=== PATIENT | female | born 1990 | race Caucasian/White ===

== ENCOUNTER 2018-05-29 03:04 | Inpatient (IN) | payer OTHER ==
[2018-05-29] VITALS (22 sets, daily range): BP systolic 97–130; BP diastolic 50–82; PULSE 64–97; RESP 12–20; Ht 152.4 cm; Wt 85.0 kg
[~2018-05-29] VITALS: Ht 152.4 cm; Wt 85.0 kg
[~2018-05-29 03:04] MED LIST: IBUP800T48 PO; NITR-58 PO; ONDA4TAB8 PO
[2018-05-29] MEDS ORDERED: ONDANSETRON 4 MG INJ IV STA (03:21)
[2018-05-29] MEDS ORDERED: SOD CHLORIDE 0.9% 500 ML IV STA (03:21)
[2018-05-29] MEDS ORDERED: morphine 4 MG/ML VIAL IV STA (03:21)
--- NOTE | 2018-05-29 03:24 | ERD ---
ER Documentation Chief Complaint Chief Complaint back pain rad to abd, no injury. no n/v/d/fever/urinary symptoms HPI 27-year-old female presents here to emergency department for complaints of epigastric pain right upper quadrant pain radiating to the right upper back area radiating to all over the abdomen that started at 12 midnight, describes the pain as throbbing pain, 8/10 scale, as was upon taking deep breaths and movement. Patient denies any nausea vomiting diarrhea fever. Patient has history of back surgeries from the past and had shunt placement from hydrocephalus. Patient denies any hematuria or dysuria. ROS All systems reviewed and are negative except as per history of present illness. Medications Home Meds Active Scripts Ondansetron Hcl* (Zofran*) 4 Mg Tablet, 4 MG PO Q6H for NAUSEA AND/OR VOMITING, #30 TAB Prov:JOSE NELSON PA-C 07/17/15 Ibuprofen* (Motrin*) 800 Mg Tab, 800 MG PO Q6, #30 TAB Prov:JOSE NELSON PA-C 07/17/15 Nitrofurantoin Monohyd Macrocr* (Macrobid*) 100 Mg Capsr, 100 MG PO BID for 7 Days, CAP Prov:JOSE NELSON PA-C 07/17/15 Allergies Allergies: Coded Allergies: Penicillins (Verified Allergy, Unknown, 07/17/15) PMhx/Soc History of Surgery: Yes (vp software shunt ) Anesthesia Reaction: No Hx Neurological Disorder: No Hx Respiratory Disorders: No Hx Cardiac Disorders: No Hx Psychiatric Problems: No Hx Miscellaneous Medical Probl: Yes (migraine , hydrocephalus ) Hx Alcohol Use: Yes Hx Substance Use: No Hx Tobacco Use: No FmHx Family History: No diabetes, No coronary disease, No other Physical Exam Vitals Vital Signs Date Temp Pulse Resp B/P (MAP) Pulse Ox O2 O2 Flow FiO2 Time Delivery Rate 05/29/18 98.1 82 20 139/73 100 03:05 (95) Physical Exam GENERAL: The patient is well developed and appropriate for usual state of health, in no apparent distress. CHEST: Clear to auscultation bilaterally. There are no rales, wheezes or rhonchi. HEART: Regular rate and rhythm. No murmurs, clicks, rubs or gallops. No S3 or S4. ABDOMEN: Soft, tenderness on all over abdomen and right flank area.. Good bowel sounds. No rebound or guarding. No gross peritonitis. No gross organomegaly or masses. No Grady sign or McBurney point tenderness. BACK: No midline or flank tenderness. EXTREMITIES: Equal pulses bilaterally. There is no peripheral clubbing, cyanosis or edema. No focal swelling or erythema. Full range of motion. Grossly neurovascularly intact. NEURO: Alert and oriented. Cranial nerves 2-12 intact. Motor strength in all 4 extremities with 5/5 strength. Sensation grossly intact. Normal speech and gait. SKIN: There is no apparent rash or petechia. The skin is warm and dry. HEMATOLOGIC AND LYMPHATIC: There is no evidence of excessive bruising or lymphedema. No gross cervical, axillary, or inguinal lymphadenopathy. Result Diagram: 05/29/18 0353 05/29/18 0353 Results 24 hrs Laboratory Tests Test 05/29/18 03:53 05/29/18 03:54 05/29/18 04:00 White Blood Count 12.9 10^3/ul Red Blood Count 5.25 10^6/ul Hemoglobin 14.8 g/dl Hematocrit 43.5 % Mean Corpuscular Volume 82.9 fl Mean Corpuscular Hemoglobin 28.2 pg Mean Corpuscular 34.0 g/dl Hemoglobin Concent Red Cell Distribution Width 12.6 % Platelet Count 367 10^3/UL Mean Platelet Volume 10.5 fl Immature Granulocytes % 0.400 % Neutrophils % 60.2 % Lymphocytes % 29.9 % Monocytes % 8.0 % Eosinophils % 1.0 % Basophils % 0.5 % Nucleated Red Blood Cells % 0.0 /100WBC Immature Granulocytes # 0.050 10^3/ul Neutrophils # 7.8 10^3/ul Lymphocytes # 3.9 10^3/ul Monocytes # 1.0 10^3/ul Eosinophils # 0.1 10^3/ul Basophils # 0.1 10^3/ul Nucleated Red Blood Cells # 0.0 10^3/ul Sodium Level 137 mmol/L Potassium Level 4.0 mmol/L Chloride Level 104 mmol/L Carbon Dioxide Level 25 mmol/L Anion Gap 8 Blood Urea Nitrogen 16 mg/dl Creatinine 0.89 mg/dl Est Glomerular Filtrat > 60 mL/min Rate mL/min Glucose Level 107 mg/dl Calcium Level 10.1 mg/dl Total Bilirubin 0.1 mg/dl Direct Bilirubin 0.00 mg/dl Indirect Bilirubin 0.1 mg/dl Aspartate Amino Transf (AST/SGOT) 38 IU/L Alanine 45 IU/L Aminotransferase (ALT/SGPT) Alkaline Phosphatase 86 IU/L Total Protein 8.5 g/dl Albumin 4.8 g/dl Globulin 3.70 g/dl Albumin/Globulin Ratio 1.29 Lipase 90 U/L Serum HCG, Qualitative NEGATIVE Urine Color YELLOW Urine Clarity SLIGHTLY CLOUDY Urine pH 6.0 Urine Specific [place] 1.017 Urine Ketones NEGATIVE mg/dL Urine Nitrite NEGATIVE mg/dL Urine Bilirubin NEGATIVE mg/dL Urine Urobilinogen NEGATIVE mg/dL Urine Leukocyte Esterase 3+ Mary/ul Urine Microscopic RBC 3 /HPF Urine Microscopic WBC 4 /HPF Urine Squamous Epithelial Cells FEW /HPF Urine Bacteria FEW /HPF Urine Hemoglobin NEGATIVE mg/dL Urine Glucose NEGATIVE mg/dL Urine Total Protein NEGATIVE mg/dl POC Beta HCG, Qualitative NEGATIVE Current Medications Medications Dose Sig/Tammy Start Time Status Last (Trade) Ordered Route PRN Stop Time Admin Dose Reason Admin Sodium 500 ml @ Q1H STAT 05/29/18 DC 05/29/18 Chloride 500 mls/hr IV 03:21 05/29/18 03:59 04:20 Morphine 4 mg ONCE STAT 05/29/18 DC 05/29/18 Sulfate IV 03:21 05/29/18 03:57 (morphine) 03:22 Ondansetron 4 mg ONCE STAT 05/29/18 DC 05/29/18 HCl (Zofran IV 03:21 05/29/18 03:57 Inj) 03:22 Lorazepam 1 mg ONCE ONCE 05/29/18 DC 05/29/18 (Ativan) IV 04:30 05/29/18 04:18 04:31 Sodium 100 ml @ ud STK-MED 05/29/18 DC 05/29/18 Chloride ONCE .ROUTE 04:33 05/29/18 04:51 04:34 Iohexol 150 ml STK-MED 05/29/18 DC 05/29/18 (Omnipaque ONCE .ROUTE 04:33 05/29/18 04:51 300mg/ ml) 04:34 Ketorolac 30 mg ONCE STAT 05/29/18 DC 05/29/18 Tromethamine IV 05:08 05/29/18 05:18 (Toradol) 05:09 Patient was given medication for pain here in emergency department, after treatment, patient verbalized feeling much better. Patient's pain is improved. Patient was given Zofran here in the emergency department. After treatment, patient was able to tolerate po fluids here in the emergency department without any vomiting. There is no signs and symptoms of dehydration. Normal saline IV bolus was given here in emergency department for rehydration, patient tolerated IV fluids. PROCEDURE: US Abdomen. CLINICAL INDICATION: Abdominal pain TECHNIQUE: Multiple real-time images were acquired of the patient's abdomen and retroperitoneum utilizing a high resolution transducer. COMPARISON: None FINDINGS: Examination is somewhat limited due to the patient's body habitus and overlying bowel gas. Liver is enlarged measuring 17.3 cm. Liver parenchymal echogenicity is normal without focal lesions. There are multiple gallstones seen within the gallbladder neck. Note however there is no gallbladder wall thickening or pericholecystic fluid. Common bile duct normal limits in size maximal transverse diameter 3.54 mm. No intrahepatic biliary ductal dilation. The right kidney is normal in size measuring 10.2 cm in maximal sagittal dimension. Normal right renal parenchymal echogenicity without calculus hydronephrosis or intra mass. Normal portal venous flow. The pancreas was not visualized due to technical reasons. IMPRESSION: 1. Multiple gallstones within the gallbladder neck but no gallbladder wall thickening. 2. No biliary ductal dilation. 3. No focal hepatic lesions. 4. Unremarkable right kidney. RPTAT:AAJJ Physician Chad Date Time Electronically viewed and signed by Physician Chad on 05/29/2018 04:29 BM/ CC: HILLARY HAIRSTON NP [id number] PROCEDURE: CT Abdomen and pelvis with contrast CLINICAL INDICATION: Abdominal pain TECHNIQUE: Spiral CT images through the abdomen and pelvis without adm inistration of oral and during administration of 100 cc of Omnipaque-300 contrast material. Multiplanar reconstructions. The total exam CTDI equals 17.92 mGy and the total exam DLP equals 1198.21 mGy-cm. One or more of the following dose reduction techniques were used: automated exposure control, adjustment of the mA and/or kV according to patient size, or use of iterative reconstruction technique. DICOM images are available. COMPARISON: US ABDOMEN 05/29/2018 FINDINGS: Lower thorax: Bibasilar dependent changes, right greater than left.. Liver: Mildly diminished hepatic density consistent with mild hepatic steatosis. Biliary: Distended gallbladder including gallbladder neck. There are small stones dependently and proximally within the gallbladder. No biliary ductal dilatation is seen. Pancreas: Unremarkable. No focal mass or inflammatory process. Spleen: The spleen is unremarkable in appearance Adrenal glands: Unremarkable in appearance. No focal nodule.. Genitourinary: Kidneys appear symmetric including minimal hydronephrosis without evidence of hydroureter. The bladder is moderately distended, without wall thickening. Gastrointestinal Tract: Evaluation is more limited without enteric contrast. There are several mildly dilated jejunal loops containing fluid and some debris, measuring just under 3 cm in the left upper quadrant. There are other distal small bowel loops in the lower abdomen including right lower quadrant which contains some stool/debris, perhaps on the basis of hypomotility. A defined transition is not seen. The appendix is unremarkable in appearance. Lymph nodes: No adenopathy is seen.. Peritoneal cavity: Small to moderate volume of free fluid in the lower abdomen and pelvis, surrounding the intraperitoneal portion of what appears to be a lumbo-peritoneal shunt or drain, that enters the left mid abdomen anteriorly, the extraperitoneal portion of which is connected to a device in the left flank soft tissues, with a single lead entering the spinal canal at L2-3 and extending superiorly to least the mid thoracic spine level, beyond the field of view. Distal portion of a separate ventriculoperitoneal shunt catheter is seen within the anterior right chest and abdominal wall soft tissues, entering to the right of midline at the level of the umbilicus, with its distal tip seen alongside the above-mentioned peritoneal catheter on coronal image 29. There is no loculated drainable collection to suggest abscess, nor free air. Reproductive Organs: Within physiologic normal limits.. Vascular structures: The aorta and mesenteric vessels are unremarkable.. Musculoskeletal: No acute or aggressive appearing osseous abnormality. Bilateral L5 pars defects are seen.. IMPRESSION: Distended gallbladder including gallbladder neck, with several small gallstones present, and which could raise the possibility of acute cholecystitis despite the absence of pericholecystic fat stranding. Further workup could include consideration for nuclear medicine HIDA scan. There are several mildly dilated jejunal loops measuring just under 3 cm, differential for which includes a mild localized ileus, although an early or partial small bowel obstruction is not excluded. Small to moderate volume of free fluid presumably related to the shunt catheters with 2 separate catheters partially included, as above. Minimal to mild bilateral hydronephrosis without evidence of hydroureter, and may in part relate to be moderately distended urinary bladder. Mild hepatic steatosis. RPTAT: HSAF Physician Hubert Date Time Electronically viewed and signed by Physician Hubert on 05/29/2018 05:12 RF/ Procedures/MDM Medical Decision Making: Symptoms consistent with possible acute cholecystitis, patient still has intractable pain after multiple medications given here in the emergency department, and patient also has urinary tract infection, I discussed this case with my attending physician, Dr. Barron agrees with plan of admission. Departure Diagnosis: Primary Impression: Cholecystitis Additional Impression: UTI (urinary tract infection) Urinary tract infection type: acute cystitis Hematuria presence: without hematuria Qualified Codes: N30.00 - Acute cystitis without hematuria Condition: HILLARY Phillips NP May 29, 2018 03:24
[2018-05-29] MEDS ORDERED: LORAZEPAM 2 MG INJ IV ONE (04:30)
[2018-05-29] MEDS ORDERED: IOHEXOL 300MG/ML 150 ML BTL ONE (04:33)
[2018-05-29] MEDS ORDERED: SOD CHLORIDE 0.9% 100 ML ONE (04:33)
[2018-05-29] MEDS ORDERED: KETOROLAC 30 MG INJ IV STA (05:08)
[2018-05-29] MEDS ORDERED: LEVOFLOXACIN 500MG/D5W (PMX) 100 ML IVPB ONE (06:30)
[2018-05-29] MEDS ORDERED: metroNIDAZOLE 500 MG/NS (PMX) 100 ML IVPB ONE (06:30)
[2018-05-29] MEDS ORDERED: ACETAMINOPHEN 325 MG TAB PO PRN (06:30)
[2018-05-29] MEDS ORDERED: ONDANSETRON 4 MG INJ IV PRN ×4 (06:30→16:00)
--- NOTE | 2018-05-29 06:30 | EN ---
Date/Time of Note Date/Time of Note DATE: 05/29/18 TIME: 06:19 ER Progress Note Consultation Note Subjective HPI: This patient was signed out to me at 6 AM after the diagnosis of cholecystitis was made by the PA and the patient was transferred to the main ER. Briefly, this is a 27-year-old female who presented with right upper quadrant abdominal pain. The patient's ultrasound revealed multiple gallstones concerning for biliary colic. The patient CT scan was read by the radiologist as concerning for possible cholecystitis. Family History: As indicated on the initial history and physical of this ER visit Objective VS: Vital signs reviewed Const: No apparent distress, well-developed, well-nourished Head: Normocephalic, Atraumatic Eyes: Normal Conjunctiva. ENT: Normal External Ears, Nose and Mouth. Neck: No meningismus. Resp: Symmetric chest wall pierre, no audible wheezes Cardio: Deferred Abd: Right upper quadrant abdominal pain Skin: No petechiae or rashes Back: Deferred Ext: No cyanosis, or edema Neur: Awake and alert, oriented 4. No facial droop. Normal strength and sensation. Psych: Normal mood and affect MDM The patient's presentation warrants further investigation. Previous medical records, if available, were reviewed. LABS The patient's laboratory testing was obtained and reviewed. No emergent treatment was required unless described below. CBC: Leukocytosis, concerning for possible infection. No E/o anemia or thrombocytopenia CMP: No E/o severe acidosis or alkalosis or renal failure or liver disease or diabetic ketoacidosis Lipase: No E/o pancreatitis PT/INR: No E/o significant coagulopathy Urine: Equivocal for infection or hematuria. IMAGING Imaging and Radiology interpretation reviewed. US Abd 1. Multiple gallstones within the gallbladder neck but no gallbladder wall thickening. 2. No biliary ductal dilation. 3. No focal hepatic lesions. 4. Unremarkable right kidney. Electronically viewed and signed by Physician Chad on 05/29/2018 04:29 CT Abd 1. Distended gallbladder including gallbladder neck, with several small gallstones present, and which could raise the possibility of acute cholecystitis despite the absence of pericholecystic fat stranding. Further workup could include consideration for nuclear medicine HIDA scan. 2. There are several mildly dilated jejunal loops measuring just under 3 cm, differential for which includes a mild localized ileus, although an early or partial small bowel obstruction is not excluded. 3. Small to moderate volume of free fluid presumably related to the shunt catheters with 2 separate catheters partially included, as above. 4. Minimal to mild bilateral hydronephrosis without evidence of hydroureter, and may in part relate to be moderately distended urinary bladder. 5. Mild hepatic steatosis. Electronically viewed and signed by Ino Will Physician on 05/29/2018 05:12 TREATMENT/DISPOSITION The patient presents with findings concerning for cholecystitis. The patient was given Toradol and morphine for pain control. She was given Zofran for nausea. She was given Levaquin and Flagyl for the possible infection. At this time, I feel that the patient requires admission for further evaluation and management. I admitted to Dr. Radford in accordance with the patient's insurance. The patient was accepted at 6:15AM on 05/29/2017 to med surg. The on-call general surgeon, Dr. Virk, was consulted by me from the emergency department. He will evaluate the patient in the hospital. Disclaimer: Inadvertent spelling and grammatical errors are likely due to EHR/dictation software use and do not reflect on the overall quality of patient care. Note that the electronic time recorded on this note does not necessarily reflect the actual time of the patient encounter. CECIL ADHIKARI MD May 29, 2018 06:29
[2018-05-29] MEDS ORDERED: DEXAMETHASONE 4 MG/ML 1 ML INJ ONE (07:00)
[2018-05-29] MEDS ORDERED: CLINDAMYCIN 900 MG/50 ML D5W IVPB IVPB ONE (07:00)
[2018-05-29] MEDS ORDERED: NEOSTIGMINE 3 MG/3 ML SYRINGE ONE (07:00)
[2018-05-29] MEDS ORDERED: GLYCOPYRROLATE 0.4 MG INJ ONE (07:00)
[2018-05-29] MEDS ORDERED: BUPIVACAINE 0.5%/EPI (SDV) 30 ML INJ ONE (12:13)
--- NOTE | 2018-05-29 12:19 | CONS ---
Date/Time of Note Date/Time of Note DATE: 05/29/18 TIME: 12:16 Assessment/Plan Assessment/Plan Assessment/Plan Acute cholecystitis. Laparoscopic cholecystectomy, possible open is recommended. I have discussed the procedure, outcomes, expectations, alternatives and risks in detail with the patient who has an excellent understanding of the nature of her situation and agrees to the proposed plan of therapy as outlined. Result Diagram: 05/29/18 0353 05/29/18 0353 Results 24hrs Laboratory Tests Test 05/29/18 03:53 05/29/18 03:54 05/29/18 04:00 White Blood Count 12.9 H Red Blood Count 5.25 Hemoglobin 14.8 Hematocrit 43.5 Mean Corpuscular Volume 82.9 Mean Corpuscular Hemoglobin 28.2 L Mean Corpuscular 34.0 Hemoglobin Concent Red Cell Distribution Width 12.6 Platelet Count 367 Mean Platelet Volume 10.5 H Immature Granulocytes % 0.400 Neutrophils % 60.2 Lymphocytes % 29.9 Monocytes % 8.0 Eosinophils % 1.0 Basophils % 0.5 Nucleated Red Blood Cells % 0.0 Immature Granulocytes # 0.050 H Neutrophils # 7.8 H Lymphocytes # 3.9 H Monocytes # 1.0 H Eosinophils # 0.1 Basophils # 0.1 Nucleated Red Blood Cells # 0.0 Sodium Level 137 Potassium Level 4.0 Chloride Level 104 Carbon Dioxide Level 25 Anion Gap 8 Blood Urea Nitrogen 16 Creatinine 0.89 Est Glomerular Filtrat > 60 Rate mL/min Glucose Level 107 Calcium Level 10.1 Total Bilirubin 0.1 L Direct Bilirubin 0.00 Indirect Bilirubin 0.1 Aspartate Amino 38 Transf (AST/SGOT) Alanine 45 Aminotransferase (ALT/SGPT) Alkaline Phosphatase 86 Total Protein 8.5 H Albumin 4.8 Globulin 3.70 H Albumin/Globulin Ratio 1.29 Lipase 90 Serum HCG, Qualitative NEGATIVE Urine Color YELLOW Urine Clarity SLIGHTLY CLOUDY A Urine pH 6.0 Urine Specific [place] 1.017 Urine Ketones NEGATIVE Urine Nitrite NEGATIVE Urine Bilirubin NEGATIVE Urine Urobilinogen NEGATIVE Urine Leukocyte Esterase 3+ H Urine Microscopic RBC 3 Urine Microscopic WBC 4 Urine Squamous Epithelial Cells FEW Urine Bacteria FEW A Urine Hemoglobin NEGATIVE Urine Glucose NEGATIVE Urine Total Protein NEGATIVE POC Beta HCG, Qualitative NEGATIVE Consultation Date/Type/Reason Admit Date/Time May 29, 2018 at 06:31 Date of Consultation: May 29, 2018 Type of Consult General surgery Reason for Consultation Acute cholecystitis Hx of Present Illness The patient is a 27-year-old female who is otherwise healthy, with the 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 She has no familial history of gallbladder disease. She presents to the emergency room with a one day history of severe midepigastric and right upper quadrant postprandial abdominal pain. She was found to have multiple gallstones without ductal dilatation. Her white blood cell count was elevated. She is admitted with acute cholecystitis and surgical consultation was requested in that regard. She has had no fevers, chills or jaundice. Constitutional: no complaints Eyes: no complaints ENT: no complaints Respiratory: no complaints Cardiovascular: no complaints Gastrointestinal: pain, nausea (Right upper quadrant) Genitourinary: no complaints Musculoskeletal: no complaints Skin: no complaints Neurologic: no complaints, other (History of hydrocephalus for which she has a BILLING DEPARTMENT SUPERVISOR shunt) Endocrine: no complaints Lymphatic: no complaints Past Medical History Medical History: no pertinent history, other (Hydrocephalus) Medications Current Medications Ondansetron HCl (Zofran Inj) 4 mg BRIDGE ORDER PRN IV NAUSEA AND/OR VOMITING; Start 05/29/18 at 06:30; Stop 05/30/18 at 06:29 Acetaminophen (Tylenol Tab) 650 mg ER BRIDGE PRN PO MILD PAIN(1-3)OR ELEVATED TEMP; Start 05/29/18 at 06:30; Stop 05/30/18 at 06:29 Allergies: Coded Allergies: Penicillins (Verified Allergy, Unknown, 07/17/15) Past Surgical History Past Surgical Hx: other (BILLING DEPARTMENT SUPERVISOR shunt) Family History Significant Family History: no pertinent family hx Social History Alcohol Use: none Smoking Status: Never smoker Exam/Review of Systems Vital Signs Vitals Vital Signs Date Temp Pulse Resp B/P (MAP) Pulse Ox O2 O2 Flow FiO2 Time Delivery Rate 05/29/18 97.8 64 17 109/60 98 Room Air 11:44 (76) Intake and Output 05/28/18 05/28/18 05/29/18 1414:59 22:59 06:59 IntakeIntake Total 600 ml BalanceBalance 600 ml Exam Constitutional: alert, oriented Psych: no complaints Head: normocephalic Eyes: nl conjunctiva ENMT: nl external ears & nose Neck: supple Respiratory: clear to auscultation Cardiovascular: regular rate and rhythm Gastrointestinal: tender (Right upper quadrant) Musculoskeletal: nl extremities to inspection Extremities: normal pulses Neurological: INFORMATICS ANALYST II-XII intact Skin: nl turgor Medications Medications Current Medications Ondansetron HCl (Zofran Inj) 4 mg BRIDGE ORDER PRN IV NAUSEA AND/OR VOMITING; Start 05/29/18 at 06:30; Stop 05/30/18 at 06:29 Acetaminophen (Tylenol Tab) 650 mg ER BRIDGE PRN PO MILD PAIN(1-3)OR ELEVATED TEMP; Start 05/29/18 at 06:30; Stop 05/30/18 at 06:29 AGUSTINA SHUKLA MD May 29, 2018 12:19
[2018-05-29] MEDS ORDERED: PROPOFOL 40 ML ONE (12:29)
[2018-05-29] MEDS ORDERED: MIDAZOLAM 1 MG/ML 2 ML INJ ONE (12:29)
[2018-05-29] MEDS ORDERED: FENTAnyl 50 MCG/ML VIAL ONE ×2 (12:29→12:56)
[2018-05-29] MEDS ORDERED: ROCURONIUM 50 MG INJ ONE (12:29)
[2018-05-29] MEDS ORDERED: ONDANSETRON 4 MG INJ ONE (12:29)
[2018-05-29] MEDS ORDERED: LIDOCAINE 2% (SDV) 5 ML INJ ONE (12:29)
[2018-05-29] MEDS ORDERED: FAMOTIDINE 20 MG INJ ONE (12:30)
--- NOTE | 2018-05-29 12:52 | PREAC ---
Date/Time of Note Date/Time of Note DATE: 05/29/18 TIME: 12:51 Anesthesia Eval and Record Evaluation Time Pre-Procedure Interview DATE: 05/29/18 TIME: 12:20 Age 27 Sex female NPO: 8 hrs Preoperative diagnosis cholecystitis Planned procedure laparoscopic cholecystectomy Past Medical History Past Medical History: Includes (hydrocephalus ) GI: Obesity Surgery & Anesthesia Issues No known issue Meds Anticoagulation: No Beta Carrie within 24 hr: No Reason Beta Carrie not given: Pt. not on B-Carrie Discontinued Scripts Ondansetron Hcl* (Zofran*) 4 Mg Tablet, 4 MG PO Q6H for NAUSEA AND/OR VOMITING, #30 TAB Prov:JOSE NELSON PA-C 07/17/15 Ibuprofen* (Motrin*) 800 Mg Tab, 800 MG PO Q6, #30 TAB Prov:JOSE NELSON PA-C 07/17/15 Nitrofurantoin Monohyd Macrocr* (Macrobid*) 100 Mg Capsr, 100 MG PO BID for 7 Days, CAP Prov:JOSE NELSON PA-C 07/17/15 Current Medications Ondansetron HCl (Zofran Inj) 4 mg BRIDGE ORDER PRN IV NAUSEA AND/OR VOMITING; Start 05/29/18 at 06:30; Stop 05/30/18 at 06:29 Acetaminophen (Tylenol Tab) 650 mg ER BRIDGE PRN PO MILD PAIN(1-3)OR ELEVATED TEMP; Start 05/29/18 at 06:30; Stop 05/30/18 at 06:29 Meds reviewed: Yes Allergies Coded Allergies: Penicillins (Verified Allergy, Unknown, 07/17/15) Allergies Reviewed: Yes Labs/Studies Labs Reviewed: Reviewed by anesthesiologist Result Diagram: 05/29/18 0353 05/29/18 0353 Laboratory Tests 05/29/18 03:53 test: Negative Pre-procedure Exam Last vitals Vital Signs Date Temp Pulse Resp B/P (MAP) Pulse Ox O2 O2 Flow FiO2 Time Delivery Rate 05/29/18 97.8 64 17 109/60 98 Room Air 11:44 (76) Airway: Adequate mouth opening, Adequate thyromental dist Mallampati: Mallampati II Teeth: Normal Lung: Normal Heart: Normal ASA Physical Status ASA physical status: 3 Emergency: E Planned Anesthetic General/MAC: ETT Pre-operative Attestations Prior to commencing anesthesia and surgery, the patient was re-evaluated, there was verification of: *The patient's identity *The results of appropriate recent lab work and preoperative vital signs *The above evaluation not changing prior to induction *Anesthetic plan, risk benefits, alternative and complications discussed with patient/family; questions answered; patient/family understands, accepts and wi shes to proceed. MARIAH LENZ May 29, 2018 12:52
[2018-05-29] MEDS ORDERED: morphine (1 MG/ML) 10ML SYRINGE IV PRN ×2 (13:00)
[2018-05-29] MEDS ORDERED: MEPERIDINE 25 MG INJ IV PRN (13:00)
[2018-05-29] MEDS ORDERED: HYDROmorphONE 1 MG/5 ML IV SYRINGE IV PRN ×2 (13:00)
[2018-05-29] MEDS ORDERED: LABETALOL HCL 20MG INJ IV PRN (13:00)
[2018-05-29] MEDS ORDERED: OXYCODONE/ACETAMINOPHEN (5/325) TAB PO PRN ×2 (13:00)
[2018-05-29] MEDS ORDERED: ALBUTEROL 0.083% (NEB) 2.5 MG/3 ML AMP HHN PRN (13:00)
[2018-05-29] MEDS ORDERED: DIPHENHYDRAMINE 50 MG INJ IV PRN (13:00)
[2018-05-29] MEDS ORDERED: FENTAnyl 50 MCG/ML VIAL IV PRN (13:00)
--- NOTE | 2018-05-29 13:21 | OPR ---
Date/Time of Note Date/Time of Note DATE: 05/29/18 TIME: 13:14 Operative Report Procedure Date: May 29, 2018 Preoperative Diagnosis Acute cholecystitis Postoperative Diagnosis Adhesions throughout the entire peritoneum Operation/Procedure Performed Limited laparoscopy Surgeon Agustina Shukla MD Inter Com Servicer None Anesthesia Type: general Anesthesiologist: Kishore Boucher M.D. Estimated Blood Loss: none Transfusion none Specimen None Grafts/Implants none Tubes/Drains None Complications none Pt Condition Post Procedure: stable Disposition: PACU Indications Cholecystitis Procedure Description The patient is a 27-year-old female who was admitted with right upper quadrant abdominal pain and gallstones. Her white blood cell count was elevated and her diagnosis was acute cholecystitis. Her only past medical history was a history of ventriculoperitoneal shunt for hydrocephalus. After satisfactory general endotracheal anesthesia was achieved the abdomen was prepped and draped in the usual fashion. The abdomen was insufflated with carbon dioxide through an umbilical Veress needle to 15 mmHg pressure. The Veress needle was removed and the umbilical incision was extended to 5 mm through which a 5 mm trocar was enrrique stefano. A 5 mm 0 degree lens was placed. Laparoscopy showed only small intestine. The entry site of the ventriculoperitoneal shunt was intact. The shunt was visible. The trocar was withdrawn slightly expecting that the colon which was not visualized would be able to be encompassed by the pneumoperitoneum. But this did not happen. Under direct visualization a 5 mm epigastric trocar was placed. The camera was placed into the epigastric port. The umbilical port was visualized and was intraperitoneal. No liver or colon was able to be visualized the only free area of the peritoneum was below the colon where the umbilical trocar was safely placed. There were too many adhesions in an abdomen essentially plastered with adhesions. It was thought dangerous to proceed and the procedure was aborted. The trochars were removed. The skin punctures were infiltrated with 20 cc of 0.25% Marcaine with epinephrine and closed with opal. Sponge and needle counts were reported as correct x2. AGUSTINA SHUKLA MD May 29, 2018 13:21
[2018-05-29] MEDS: FENTAnyl 50 MCG/ML VIAL IV PRN ×2 (13:29→13:34)
[2018-05-29] MEDS ORDERED: morphine SULFATE/PF (2 MG/2 ML) SYG IV PRN (13:30)
[2018-05-29] MEDS: SOD CHLORIDE 0.9% 1,000 ML IV SCH (15:58)
[2018-05-29] MEDS: LEVOFLOXACIN 500MG/D5W (PMX) 100 ML IVPB SCH (16:03)
--- NOTE | 2018-05-29 17:04 | QN ---
Documentation Comment seen and examined ENEDINA CUTLER MD May 29, 2018 17:04
[2018-05-29] MEDS: metroNIDAZOLE 500 MG/NS (PMX) 100 ML IVPB SCH ×2 (17:30→23:13)
--- NOTE | 2018-05-29 18:47 | HP ---
DATE OF ADMISSION: 05/29/2018 REASON FOR ADMISSION: Abdominal pain. HISTORY OF PRESENTING ILLNESS: This is a 27-year-old female with a past medical history of hydroceph alus as a child with multiple back surgeries, abdominal surgeries, multiple shunt placements, present ed to the emergency department complaining of epigastric right upper quadrant pain going to the upper back that started midnight. The patient said that she has had 4 episodes of this kind of pain start ing since last year. She always thought that the pain was related to her back surgeries and had been usually taking Vicodin. Last midnight when she had a hot chocolate and after she had it, she woke u p, had a severe right upper quadrant pain and that made her come to the hospital. She was also havin g some chest pain, burning and some nausea. The patient denied any hematuria, any dysuria. On arriv al to ED, vital signs showed blood pressure 139/73. The patient was afebrile. White count was 12.9. BMP showed total bilirubin 0.1, AST, ALT within normal limits. Alkaline phosphatase 86. Lipase wa s 90. UA showed 3+ leukocyte esterase. The patient had a gallbladder ultrasound that showed multipl e gallstones with the gallbladder neck, but no gallbladder wall thickening. She also had a CT of the abdomen and pelvis that showed distended gallbladder including gallbladder neck with several gallsto sandy present which could raise the possibility of acute cholecystitis. Despite of absence of fa t stranding, there are several mildly dilated jejunal loops which include mild localized ileus, small to moderate amount of free fluid, shunt catheters, minimal to mild bilateral hydronephrosis without evidence of ureter. It may be related to the moderately distended urinary bladder and mild hepatic s teatosis. The patient was admitted for further management. Actually, the patient was seen by Dr. Peace oneil and was taken to OR; however, had adhesions for the entire peritoneum and had a limited laparosc opy performed. PAST MEDICAL HISTORY: History of hydrocephalus with multiple shunt placements and back surgeries. ALLERGIES: 1. PENICILLIN. 2. TAPE. SOCIAL HISTORY: Denies any history of smoking, alcohol or drug use. FAMILY HISTORY: Noncontributory. MEDICATIONS: Taking at home is Vicodin. PHYSICAL EXAMINATION: VITAL SIGNS: Currently blood pressure is 112/60, afebrile, heart rate is 70. GENERAL: The patient is awake, alert, oriented, appears to be in mild to moderate distress, obese. NECK: Supple. No JVD. HEART: Regular rate and rhythm. LUNGS: Decreased breath sounds bilaterally. ABDOMEN: Tenderness present in the right upper quadrant. Multiple surgical scars. Positive bowel s ounds. EXTREMITIES: No clubbing, cyanosis or edema BACK: The patient has scars on the back. LABORATORY DATA: BMP within normal limit. White count of 12.9, hemoglobin 14.8, platelet count of 3 67. ASSESSMENT AND PLAN: This is a 27-year-old female presenting with: 1. Recurrent right upper quadrant pain for the past 1 year with [address] of the abdomen and p minal with distended gallbladder with some small gallstones. However, the patient was taken to OR by Dr. Vikr and had adhesions throughout the entire peritoneum with limited laparoscopy. 2. Distended bladder. 3. Obesity. 4. History of hydrocephalus with multiple back and shunt surgeries. PLAN: At this period of time, the patient is admitted to med/surg. The patient will be on IV antibi otics, pain control, IV fluids. We will follow with surgery recommendations whether the patient will need. Rest of the treatment will depend on the patient's hospitalization course. Dictated By: ENEDINA NEFF/JUNIOR Conf#: [id number] DID#: [id number]
[2018-05-29] MEDS: morphine SULFATE/PF (2 MG/2 ML) SYG IV PRN ×2 (18:48→23:13)
[2018-05-29] MEDS: HYDROCODONE/APAP (5/325) TAB PO PRN (21:46)
[2018-05-30 01:44] VITALS: BP 101/59; PULSE 65; RESP 16
[2018-05-30] MEDS: metroNIDAZOLE 500 MG/NS (PMX) 100 ML IVPB SCH ×3 (05:27→21:25)
[2018-05-30] MEDS: morphine SULFATE/PF (2 MG/2 ML) SYG IV PRN ×3 (05:37→21:34)
[2018-05-30] MEDS: SOD CHLORIDE 0.9% 1,000 ML IV SCH ×2 (05:45→12:55)
[2018-05-30 07:56] VITALS: BP 102/56; PULSE 73; RESP 18
--- NOTE | 2018-05-30 08:38 | QN ---
Documentation Comment Postoperative day #1 Afebrile throughout The abdominal examination is benign. WBC 15,000 HIDA scan negative Plan: Continue IV antibiotics. If patient is stable can be discharged. If patient requires surgery, it will need to be done open and would recommend higher level of care at a tertiary center, because of previous abdominal surgeries and ventriculoperitoneal shunt AGUSTINA SHUKLA MD May 30, 2018 08:38
--- NOTE | 2018-05-30 10:48 | PAC ---
Date/Time of Note Date/Time of Note DATE: 05/30/18 TIME: 10:48 Post-Anesthesia Notes Post-Anesthesia Note Last documented vital signs Vital Signs Date Temp Pulse Resp B/P (MAP) Pulse Ox O2 O2 Flow FiO2 Time Delivery Rate 05/30/18 98.2 73 18 102/56 96 Room Air 07:56 (71) 05/29/18 3.0 14:48 Activity: WNL Respiratory function: WNL Cardiovascular function: WNL Mental status: Baseline Pain reasonably controlled: Yes Hydration appropriate: Yes Nausea/Vomiting absent: Yes Kishore Boucher M.D. May 30, 2018 10:48
[2018-05-30 15:21] VITALS: BP 107/59; PULSE 79; RESP 18
[2018-05-30] MEDS: LEVOFLOXACIN 500MG/D5W (PMX) 100 ML IVPB SCH (15:57)
[2018-05-30] MEDS: HYDROCODONE/APAP (5/325) TAB PO PRN (15:57)
--- NOTE | 2018-05-30 16:37 | PN ---
Date/Time of Note Date/Time of Note DATE: 05/30/18 TIME: 16:34 Assessment/Plan VTE Prophylaxis Risk score (from Ns)>0 risk: 2 SCD applied (from Nsg): Yes Pharmacological prophylaxis: NA/contraindicated Pharm contraindication: low risk/ambulating Lines/Catheters IV [facility]ter Type (from [facility]): Peripheral IV Assessment/Plan Hospital Course his is a 27-year-old female presenting with: 1. Recurrent right upper quadrant pain for the past 1 year with [address] of the abdomen and pelvis with distended gallbladder with some small gallstones. However, the patient was taken to OR by Dr. 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 Distended bladder. 3. Obesity. 4. History of hydrocephalus with multiple back and shunt surgeries. 5 Leukocytosis 15 Plan - HIDA neg - per surgery, cw iv abx, if need surgery will need open cholecystectomy> recommend [facility] - Pt wish to go to [place]> will try to transfer - full liquid diet - cw levaquin/flagyl - iv fluids - pain control Result Diagram: 05/30/18 0601 05/30/18 0601 Results 24hrs Laboratory Tests Test 05/30/18 06:01 White Blood Count 15.1 H Red Blood Count 4.69 Hemoglobin 13.3 Hematocrit 39.0 Mean Corpuscular Volume 83.2 Mean Corpuscular Hemoglobin 28.4 L Mean Corpuscular Hemoglobin Concent 34.1 Red Cell Distribution Width 12.7 Platelet Count 333 Mean Platelet Volume 10.9 H Immature Granulocytes % 0.300 Neutrophils % 85.9 H Lymphocytes % 9.1 L Monocytes % 4.6 Eosinophils % 0.0 Basophils % 0.1 Nucleated Red Blood Cells % 0.0 Immature Granulocytes # 0.040 H Neutrophils # 13.0 H Lymphocytes # 1.4 Monocytes # 0.7 Eosinophils # 0.0 Basophils # 0.0 Nucleated Red Blood Cells # 0.0 Sodium Level 141 Potassium Level 4.5 Chloride Level 102 Carbon Dioxide Level 27 Anion Gap 12 Blood Urea Nitrogen 11 Creatinine 0.68 Est Glomerular Filtrat Rate mL/min > 60 Glucose Level 127 Calcium Level 9.2 Phosphorus Level 4.4 Magnesium Level 1.9 Subjective 24 Hr Interval Summary Free Text/Dictation Feel s slight better HIDA scan neg Exam/Review of Systems Vital Signs Vitals Vital Signs Date Temp Pulse Resp B/P (MAP) Pulse Ox O2 O2 Flow FiO2 Time Delivery Rate 05/30/18 98.2 79 18 107/59 97 Room Air 15:21 (75) 05/29/18 3.0 14:48 Intake and Output 05/29/18 05/29/18 05/30/18 1515:00 23:00 07:00 IntakeIntake Total 900 ml 440 ml 900 ml OutputOutput Total 5 ml BalanceBalance 895 ml 440 ml 900 ml Exam GENERAL: The patient is awake, alert, oriented, appears to be in mild to moderate distress, obese. NECK: Supple. No JVD. HEART: Regular rate and rhythm. LUNGS: Decreased breath sounds bilaterally. ABDOMEN: Tenderness present in the right upper quadrant. Multiple surgical sca rs. Positive bowel sounds. EXTREMITIES: No clubbing, cyanosis or edema BACK: The patient has scars on the back Medications Medications Current Medications Ondansetron HCl (Zofran Inj) 4 mg Q6H PRN IV NAUSEA; Start 05/29/18 at 13:30 Morphine Sulfate (morphine SULFATE (PF)) 2 mg Q4H PRN IV SEVERE PAIN LEVEL 7-10 Last administered on 05/30/18at 13:20; Admin Dose 2 MG; Start 05/29/18 at 16:00 Ondansetron HCl (Zofran Inj) 4 mg Q4H PRN IV NAUSEA AND/OR VOMITING; Start 05/29/18 at 16:00 Levofloxacin/ Dextrose 100 ml @ 100 mls/hr Q24H IVPB Last administered on 05/30/18at 15:57; Admin Dose 100 MLS/HR; Start 05/29/18 at 16:00 Sodium Chloride 1,000 ml @ 70 mls/hr [id number] IV Last administered on 05/30/18at 12:55; Admin Dose 70 MLS/HR; Start 05/29/18 at 16:00 Metronidazole 100 ml @ 100 mls/hr Q8 IVPB Last administered on 05/30/18at 14:17; Admin Dose 100 MLS/HR; Start 05/29/18 at 17:30 Acetaminophen/ Hydrocodone Bitart ([place] (5/325)) 1 tab Q6H PRN PO MODERATE PAIN LEVEL 4-6 Last administered on 05/30/18at 15:57; Admin Dose 1 TAB; Start 05/29/18 at 21:30 ENEDINA CUTLER MD May 30, 2018 16:37
[2018-05-30 20:00] VITALS: BP 112/55; PULSE 84; RESP 16
[2018-05-31] MEDS: HYDROCODONE/APAP (5/325) TAB PO PRN ×3 (00:14→23:27)
[2018-05-31 02:53] VITALS: BP 110/65; PULSE 82; RESP 20
[2018-05-31] MEDS: morphine SULFATE/PF (2 MG/2 ML) SYG IV PRN ×2 (04:59→17:44)
[2018-05-31] MEDS: metroNIDAZOLE 500 MG/NS (PMX) 100 ML IVPB SCH ×3 (05:03→23:23)
[2018-05-31 08:27] VITALS: BP 114/73; PULSE 80; RESP 15
--- NOTE | 2018-05-31 09:32 | QN ---
Documentation Comment Postoperative day #2 Symptomatically improved Afebrile throughout Leukocytosis improved Abdominal examination is benign As there are no further surgical recommendations, will sign off and see again prn your request AGUSTINA SHUKLA MD May 31, 2018 09:32
--- NOTE | 2018-05-31 11:05 | PN ---
Date/Time of Note Date/Time of Note DATE: 05/31/18 TIME: 11:05 Assessment/Plan VTE Prophylaxis Risk score (from Ns)>0 risk: 4 SCD applied (from Ns): Yes Pharmacological prophylaxis: NA/contraindicated Pharm contraindication: surgical contra Lines/Catheters IV Catheter Type (from Nrs): Peripheral IV Assessment/Plan Hospital Course 1. Recurrent right upper quadrant pain for the past 1 year with [address] of the abdomen and pelvis with distended gallbladder with some small gallstones. However, the patient was taken to OR by Dr. 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 Distended bladder. 3. Obesity. 4. History of hydrocephalus with multiple back and shunt surgeries. 5 Leukocytosis decreased 6. Ileus with constipation 3 days Assessment/Plan -per case management started to do transfer to [facility] now - HIDA neg - per surgery, cw iv abx, if need surgery will need open cholecystectomy> recommend [facility] - Pt wish to go to [place]> will try to transfer - c/wfull liquid diet - cw levaquin/flagyl - c/w iv fluids - pain control -ambulate -suppositoria -diet consult Result Diagram: 05/31/18 0624 05/31/18 0624 Results 24hrs Laboratory Tests Test 05/31/18 06:24 White Blood Count 11.8 #H Red Blood Count 4.25 Hemoglobin 12.0 Hematocrit 35.6 L Mean Corpuscular Volume 83.8 Mean Corpuscular Hemoglobin 28.2 L Mean Corpuscular Hemoglobin Concent 33.7 Red Cell Distribution Width 13.3 Platelet Count 303 Mean Platelet Volume 10.7 H Immature Granulocytes % 0.400 Neutrophils % 63.5 Lymphocytes % 26.5 Monocytes % 9.0 Eosinophils % 0.3 Basophils % 0.3 Nucleated Red Blood Cells % 0.0 Immature Granulocytes # 0.050 H Neutrophils # 7.5 Lymphocytes # 3.1 H Monocytes # 1.1 H Eosinophils # 0.0 Basophils # 0.0 Nucleated Red Blood Cells # 0.0 Sodium Level 142 Potassium Level 3.9 Chloride Level 106 Carbon Dioxide Level 26 Anion Gap 10 Blood Urea Nitrogen 10 Creatinine 0.76 Est Glomerular Filtrat Rate mL/min > 60 Glucose Level 93 Calcium Level 8.5 Total Bilirubin 0.2 Direct Bilirubin 0.00 Indirect Bilirubin 0.2 Aspartate Amino Transf (AST/SGOT) 21 Alanine Aminotransferase (ALT/SGPT) 29 Alkaline Phosphatase 53 Total Protein 7.0 Albumin 3.6 Globulin 3.40 H Albumin/Globulin Ratio 1.05 Subjective 24 Hr Interval Summary Constitutional: no complaints, improved Exam/Review of Systems Vital Signs Vitals Vital Signs Date Temp Pulse Resp B/P (MAP) Pulse Ox O2 O2 Flow FiO2 Time Delivery Rate 05/31/18 98.6 80 15 114/73 97 08:27 (87) 05/30/18 Room Air 15:21 05/29/18 3.0 14:48 Intake and Output 05/30/18 05/30/18 05/31/18 1515:00 23:00 07:00 IntakeIntake Total 880 ml 650 ml 450 ml BalanceBalance 880 ml 650 ml 450 ml Exam Constitutional: alert, oriented Respiratory: clear to auscultation Cardiovascular: regular rate and rhythm Gastrointestinal: soft, surgical scars Medications Medications Current Medications Ondansetron HCl (Zofran Inj) 4 mg Q6H PRN IV NAUSEA; Start 05/29/18 at 13:30 Morphine Sulfate (morphine SULFATE (PF)) 2 mg Q4H PRN IV SEVERE PAIN LEVEL 7-10 Last administered on 05/31/18at 04:59; Admin Dose 2 MG; Start 05/29/18 at 16:00 Ondansetron HCl (Zofran Inj) 4 mg Q4H PRN IV NAUSEA AND/OR VOMITING; Start 05/29/18 at 16:00 Levofloxacin/ Dextrose 100 ml @ 100 mls/hr Q24H IVPB Last administered on 05/30/18at 15:57; Admin Dose 100 MLS/HR; Start 05/29/18 at 16:00 Sodium Chloride 1,000 ml @ 70 mls/hr [id number] IV Last administered on 05/30/18at 12:55; Admin Dose 70 MLS/HR; Start 05/29/18 at 16:00 Metronidazole 100 ml @ 100 mls/hr Q8 IVPB Last administered on 05/31/18at 05:03; Admin Dose 100 MLS/HR; Start 05/29/18 at 17:30 Acetaminophen/ Hydrocodone Bitart ([place] (5/325)) 1 tab Q6H PRN PO MODERATE PAIN LEVEL 4-6 Last administered on 05/31/18at 08:44; Admin Dose 1 TAB; Start 05/29/18 at 21:30 BESSIE GAMINO May 31, 2018 11:05
[2018-05-31] MEDS ORDERED: BISACODYL 10 MG SUPP PR PRN (11:30)
[2018-05-31] MEDS ORDERED: LACTULOSE 30ML CUP PO PRN (11:30)
[2018-05-31] MEDS: SOD CHLORIDE 0.9% 1,000 ML IV SCH (11:32)
--- NOTE | 2018-05-31 15:21 | PDOCDIS ---
Discharge Instructions DIAGNOSIS Discharge Diagnosis cholecysttitis CONDITION [id number] Patient Condition: [id number] Fair HOME CARE INSTRUCTIONS: [id number] Diet Instructions: [id number] Low Fat /Cholesterol [id number] Special Diet: [id number] clear liquid ACTIVITY: [id number] Activity Restrictions: [id number] Slowly Increase Activity Rest between Activity Avoid heavy lifting FOLLOW UP/APPOINTMENTS Follow-up Plan f/u PCP in 1-2 weeks f/u [facility] for open choelcystectomy ENEDINA CUTLER MD May 31, 2018 15:21
[2018-05-31] MEDS ORDERED: METR500T PO (15:22)
[2018-05-31] MEDS ORDERED: CIPR500T4 PO (15:22)
[2018-05-31 15:57] VITALS: BP 97/57; PULSE 76; RESP 14
[2018-05-31] MEDS: LEVOFLOXACIN 500MG/D5W (PMX) 100 ML IVPB SCH (17:42)
[2018-05-31 19:58] VITALS: BP 131/75; PULSE 86; RESP 16
--- NOTE | 2018-06-01 01:33 | DS ---
DATE OF ADMISSION: 05/29/2018 DATE OF DISCHARGE: 05/31/2018 HISTORY OF PRESENTING ILLNESS AND HOSPITAL COURSE: This is a 27-year-old female with a past medical history of hydrocephalus as a child, multiple back surgeries, abdominal surgery, stent placement, pre sented to the emergency department complaining of epigastric pain going to the back, started midnight . This is her fourth episode. On admission, vital signs showed blood pressure 139/73. The patient is afebrile. White count is 12.9. BMP showed total bilirubin 0.1, AST, ALT within normal limit. Al kaline phosphatase was 86. Lipase was 90. UA showed 3+ leukocyte esterase. The patient had a gallb ladder ultrasound that showed multiple gallstones in the gallbladder neck with no gallbladder wall th ickening. Also had a CT of the abdomen and pelvis that showed distended gallbladder with gallbladder next with several gallstones with several mildly dilated jejunal loops, small to moderate free fluid presumably due to shunt catheters, minimal to mild bilateral hydronephrosis without evidence of hydr oureter, it could be moderately related to distended gallbladder. The patient also was seen by katie ry consultation with Dr. Virk and was started on broad spectrum IV antibiotics. However postoperat ively, the patient was found to have adhesions throughout the entire peritoneum, had a limited laparo scopy performed. The patient's condition was improving everyday. Initially, it was thought that the patient should be referred to a tertiary level of care as the patient would lead open cholecystectom y, previous abdominal surgery shunt. However, the patient was feeling much better. HIDA scan was done that was negative. Abdominal exam was benign. White count came down to 11.8 and per rowena y recommendations, the patient will be discharged to follow up with [facility] as an outpatient. An attemp t was made to transfer the patient in house; however, the insurance was not contacted with [facility]. FINAL DISCHARGE DIAGNOSES: 1. Cholelithiasis. HIDA negative for cholecystitis, status post limited laparoscopy with adhesions throughout the peritoneum. 2. Distended bladder. 3. Obesity. 4. History of hydrocephalus, multiple back and shunt surgeries. 5. Leukocytosis, improved. DISCHARGE CONDITION: Stable. DISCHARGE DIET: Low-fat diet. DISCHARGE MEDICATIONS: 1. Cipro 500 mg p.o. b.i.d. for 7 days. 2. Flagyl 500 mg p.o. q.8 for 7 days. DISCHARGE INSTRUCTIONS: The patient was instructed to follow up with [facility] where she normally goes or her hydrocephalus surgery. Follow up there in 1 week. If the pain gets worse as the patient will n eed open cholecystectomy. Dictated By: ENEDINA NEFF/JUNIOR Conf#: [id number] DID#: [id number]
[2018-06-01 01:39] VITALS: BP 109/58; PULSE 80; RESP 16
[2018-06-01] MEDS: SOD CHLORIDE 0.9% 1,000 ML IV SCH (04:55)
[2018-06-01] MEDS: metroNIDAZOLE 500 MG/NS (PMX) 100 ML IVPB SCH (06:23)
[2018-06-01] MEDS: HYDROCODONE/APAP (5/325) TAB PO PRN (06:24)
[2018-06-01 07:26] VITALS: BP 117/68; PULSE 69; RESP 18
--- NOTE | 2018-06-01 09:59 | DS ---
Date/Time of Note Date/Time of Note DATE: 06/01/18 TIME: 09:59 Discharge Summary Admission/Discharge Info Admit Date/Time May 29, 2018 at 06:31 Discharge Date/Time Discharge Diagnosis cholecysttitis Patient Condition: Stable Consults Dr Virk, surgery Hospital Course 1. Recurrent right upper quadrant pain for the past 1 year with [address] of the abdomen and pelvis with distended gallbladder with some small gallstones. However, the patient was taken to OR by Dr. 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 Distended bladder. 3. Obesity. 4. History of hydrocephalus with multiple back and shunt surgeries. 5 Leukocytosis decreased 6. Ileus with constipation 3 days Home Meds Active Scripts Metronidazole* (Flagyl*) 500 Mg Tablet, 500 MG PO Q8 for 7 Days, TAB Prov:ENEDINA CUTLER MD 05/31/18 Ciprofloxacin Hcl* (Ciprofloxacin Hcl*) 500 Mg Tablet, 500 MG PO BID for 7 Days, #14 TAB Prov:ENEDINA CUTLER MD 05/31/18 Discontinued Scripts Ondansetron Hcl* (Zofran*) 4 Mg Tablet, 4 MG PO Q6H for NAUSEA AND/OR VOMITING, #30 TAB Prov:JOSE NELSON PA-C 07/17/15 Ibuprofen* (Motrin*) 800 Mg Tab, 800 MG PO Q6, #30 TAB Prov:JOSE NELSON PA-C 07/17/15 Nitrofurantoin Monohyd Macrocr* (Macrobid*) 100 Mg Capsr, 100 MG PO BID for 7 Days, CAP Prov:JOSE NELSON PA-C 07/17/15 Follow-up Plan f/u PCP in 1-2 weeks f/u [facility] for open choelcystectomy Primary Care Provider Bryce Arzate MD Time spent on discharge: < 30 minutes Pending Labs Laboratory Tests Test 06/01/18 06:02 White Blood Count 10.9 10^3/ul (4.8-10.8) Red Blood Count 4.46 10^6/ul (4.20-5.40) Hemoglobin 12.7 g/dl (12.0-16.0) Hematocrit 37.6 % (37.0-47.0) Mean Corpuscular Volume 84.3 fl (82.0-101.0) Mean Corpuscular Hemoglobin 28.5 pg (29.0-33.0) Mean Corpuscular Hemoglobin Concent 33.8 g/dl (32.0-37.0) Red Cell Distribution Width 13.0 % (11.5-14.5) Platelet Count 336 10^3/UL (140-415) Mean Platelet Volume 10.3 fl (7.4-10.4) Immature Granulocytes % 0.200 % (0.001-0.429) Neutrophils % 68.1 % (39.0-77.0) Lymphocytes % 23.0 % (15.0-51.0) Monocytes % 7.9 % (0.0-11.0) Eosinophils % 0.4 % (0.0-7.0) Basophils % 0.4 % (0.0-2.0) Nucleated Red Blood Cells % 0.0 /100WBC (0.0-0.0) Immature Granulocytes # 0.020 10^3/ul (0.0-0.031) Neutrophils # 7.5 10^3/ul (1.6-7.5) Lymphocytes # 2.5 10^3/ul (0.8-2.9) Monocytes # 0.9 10^3/ul (0.3-0.9) Eosinophils # 0.0 10^3/ul (0.0-0.5) Basophils # 0.0 10^3/ul (0.0-0.1) Nucleated Red Blood Cells # 0.0 10^3/ul (0.0-0.0) Sodium Level 141 mmol/L (135-144) Potassium Level 3.7 mmol/L (3.5-5.1) Chloride Level 104 mmol/L (97-110) Carbon Dioxide Level 26 mmol/L (21-31) Anion Gap 11 (5-13) Blood Urea Nitrogen 9 mg/dl (7-20) Creatinine 0.80 mg/dl (0.44-1.00) Est Glomerular Filtrat Rate mL/min > 60 mL/min (>60) Glucose Level 95 mg/dl (70-220) Calcium Level 8.8 mg/dl (8.4-10.2) BESSIE GAMINO Jun 01, 2018 09:59
--- NOTE | 2018-06-01 10:01 | PN ---
Date/Time of Note Date/Time of Note DATE: 06/01/18 TIME: 10:00 Assessment/Plan VTE Prophylaxis Risk score (from Ns)>0 risk: 2 SCD applied (from Ns): No SCD contraindicated: low risk/ambulating Pharmacological prophylaxis: NA/contraindicated Pharm contraindication: surgical contra Lines/Catheters [facility] IV Assessment/Plan Hospital Course 1. Recurrent right upper quadrant pain for the past 1 year with [address] of the abdomen and pelvis with distended gallbladder with some small gallstones. However, the patient was taken to OR by Dr. Virk and had adhesions throughout the entire peritoneum with limited laparoscopy.due to multiple old abdominal surgeries and INSPECTOR PROCESS shunt 2. Distended bladder. 3. Obesity. 4. History of hydrocephalus with multiple back and shunt surgeries. 5 Leukocytosis decreased 6. Ileus with constipation 3 days Assessment/Plan -pt did not tolerated doiet -still constipated -ambuled - HIDA neg - per surgery, cw iv abx, if need surgery will need open cholecystectomy> re commend [facility] - Pt wish to go to [place]> will try to transfer - c/wfull liquid diet - cw levaquin/flagyl -stop iv fluids - pain control -ambulate -suppositoria -diet consult Result Diagram: 06/01/18 0602 06/01/18 0602 Results 24hrs Laboratory Tests Test 06/01/18 06:02 White Blood Count 10.9 H Red Blood Count 4.46 Hemoglobin 12.7 Hematocrit 37.6 Mean Corpuscular Volume 84.3 Mean Corpuscular Hemoglobin 28.5 L Mean Corpuscular Hemoglobin Concent 33.8 Red Cell Distribution Width 13.0 Platelet Count 336 Mean Platelet Volume 10.3 Immature Granulocytes % 0.200 Neutrophils % 68.1 Lymphocytes % 23.0 Monocytes % 7.9 Eosinophils % 0.4 Basophils % 0.4 Nucleated Red Blood Cells % 0.0 Immature Granulocytes # 0.020 Neutrophils # 7.5 Lymphocytes # 2.5 Monocytes # 0.9 Eosinophils # 0.0 Basophils # 0.0 Nucleated Red Blood Cells # 0.0 Sodium Level 141 Potassium Level 3.7 Chloride Level 104 Carbon Dioxide Level 26 Anion Gap 11 Blood Urea Nitrogen 9 Creatinine 0.80 Est Glomerular Filtrat Rate mL/min > 60 Glucose Level 95 Calcium Level 8.8 Subjective 24 Hr Interval Summary Gastrointestinal: decreased appetite, nausea Exam/Review of Systems Vital Signs Vitals Vital Signs Date Temp Pulse Resp B/P (MAP) Pulse Ox O2 O2 Flow FiO2 Time Delivery Rate 06/01/18 98.0 69 18 117/68 100 Room Air 07:26 (84) 05/29/18 3.0 14:48 Intake and Output 05/31/18 05/31/18 06/01/18 1515:00 23:00 07:00 IntakeIntake Total 2230 ml 1000 ml 1190 ml BalanceBalance 2230 ml 1000 ml 1190 ml Exam Constitutional: alert, oriented Respiratory: clear to auscultation Cardiovascular: regular rate and rhythm Gastrointestinal: soft, surgical scars Medications Medications Current Medications Morphine Sulfate (morphine SULFATE (PF)) 2 mg Q4H PRN IV SEVERE PAIN LEVEL 7-10 Last administered on 05/31/18 17:44; Admin Dose 2 MG; Start 05/29/18 at 16:00 Ondansetron HCl (Zofran Inj) 4 mg Q4H PRN IV NAUSEA AND/OR VOMITING; Start 05/29/18 at 16:00 Levofloxacin/ Dextrose 100 ml @ 100 mls/hr Q24H IVPB Last administered on 05/31/18 17:42; Admin Dose 100 MLS/HR; Start 05/29/18 at 16:00 Sodium Chloride 1,000 ml @ 70 mls/hr [id number] IV Last administered on 06/01/18 04:55; Admin Dose 70 MLS/HR; Start 05/29/18 at 16:00 Metronidazole 100 ml @ 100 mls/hr Q8 IVPB Last administered on 06/01/18 06:23; Admin Dose 100 MLS/HR; Start 05/29/18 at 17:30 Acetaminophen/ Hydrocodone Bitart ([place] (5/325)) 1 tab Q6H PRN PO MODERATE PAIN LEVEL 4-6 Last administered on 06/01/18 06:24; Admin Dose 1 TAB; Start 05/29/18 at 21:30 Bisacodyl (Dulcolax Supp) 10 mg DAILY PRN ND CONSTIPATION; Start 05/31/18 at 11:30 Lactulose (Enulose) 10 gm DAILY PRN PO CONSTIPATION; Start 05/31/18 at 11:30 BESSIE GAMINO Jun 01, 2018 10:01
== END 2018-06-01 14:20 | disposition home or self-care (01) | DRG 421 ==
LOC: FTE 03:04 → 2NE 06:31
PROVIDERS: ADMIT Internal Medicine; ATTEND Internal Medicine
PROC: 0WJG4ZZ Inspection of Peritoneal Cavity, Percutaneous Endoscopic Approach (ICD-10-PCS; principal; 2018-05-29 12:30)
DX: K80.20 Calculus of gallbladder without cholecystitis without obstruction (principal); K56.7 Ileus, unspecified; K66.0 Peritoneal adhesions (postprocedural) (postinfection); N32.89 Other specified disorders of bladder; E66.9 Obesity, unspecified; K59.00 Constipation, unspecified; Z68.36 Body mass index [BMI] 36.0-36.9, adult; Z98.2 Presence of cerebrospinal fluid drainage device; Z88.0 Allergy status to penicillin
CPT/HCPCS: 36415; 74177; 76705; 78226; 80048; 80053; 81001; 81025; 83690; 83735; 84100; 84703; 85025; 96361; 96374; 96375; A9537; J1100; J1170; J1885; J1956; J2060; J2175; J2250; J2270; J2274; J2405; J2710; J3010; J7030; J7040; Q9967

== ENCOUNTER 2018-09-30 23:33 | Inpatient (IN) | payer OTHER ==
[~2018-09-30] VITALS: Ht 160 cm; Wt 81.8 kg
[~2018-09-30 23:33] MED LIST changes: +CIPR500T4 PO; -IBUP800T48 PO; +METR500T PO; -NITR-58 PO; -ONDA4TAB8 PO
[2018-10-01] VITALS (12 sets, daily range): BP systolic 118–149; BP diastolic 71–83; PULSE 59–92; RESP 18–24; Ht 160 cm; Wt 81.8 kg
[2018-10-01] MEDS ORDERED: morphine 4 MG/ML VIAL IV STA ×2 (00:18→16:33)
[2018-10-01] MEDS ORDERED: SOD CHLORIDE 0.9% 1,000 ML IV STA (00:18)
[2018-10-01] MEDS ORDERED: ONDANSETRON 4 MG INJ IV STA ×2 (00:18→07:19)
[2018-10-01] MEDS ORDERED: HYDROmorphONE 0.5 MG/0.5 ML SYG IV STA ×3 (01:36→05:24)
[2018-10-01] MEDS ORDERED: SOD CHLORIDE 0.9% 1,000 ML IV ONE (02:00)
[2018-10-01] MEDS ORDERED: metroNIDAZOLE 500 MG/NS (PMX) 100 ML IVPB ONE (02:30)
[2018-10-01] MEDS ORDERED: LEVOFLOXACIN 500MG/D5W (PMX) 100 ML IVPB ONE (02:30)
[2018-10-01] MEDS ORDERED: SOD CHLORIDE 0.9% 100 ML ONE (03:41)
[2018-10-01] MEDS ORDERED: IOHEXOL 300MG/ML 150 ML BTL ONE (03:41)
--- NOTE | 2018-10-01 03:56 | ERD ---
ER Documentation Chief Complaint Chief Complaint mid AP 03/06, N/V X 3.5 hrs. Hx gallstones. HPI 28-year-old female presents for abdominal pain x3-1/2 hours. She has a past medical history of hydrocephalus with a AMBULANCE OFFICER shunt, multiple back and abdominal surgeries, history of gallstones. She states that she has 10 out of 10 pain, lo cated in the epigastric area. She has nausea and vomiting. She denies fevers or diarrhea. She was here for a similar abdominal pain in May 2018, at that time was found to have multiple gallstones on imaging. Patient was taken to the OR at the time however it was noted that she had a lot of abdominal adhesions, therefore was felt that it was unsafe for surgery. Patient was given antibiotic s and pain control. She was told to follow-up at [facility] given that she gets most of her medical care for her hydrocephalus and AMBULANCE OFFICER shunt at [facility]. Per patient she did follow-up at [facility] subsequent to discharge from the hospital here on May 2018, she was admitted for about a week and was given antibiotics and pain medication. Again surgery was not attempted due to adhesions. Patient states that since then she has been okay, she always has a baseline mild abdominal pain intermittently, however states that the past few hours the pain has been more severe. Otherwise no other modifying factors noted, no treatments tried at home. ROS All systems reviewed and are negative except as per history of present illness. Medications Home Meds Active Scripts Metronidazole* (Flagyl*) 500 Mg Tablet, 500 MG PO Q8 for 7 Days, TAB Prov:ENEDINA CUTLER MD 05/31/18 Ciprofloxacin Hcl* (Ciprofloxacin Hcl*) 500 Mg Tablet, 500 MG PO BID for 7 Days, #14 TAB Prov:ENEDINA CUTLER MD 05/31/18 Allergies Allergies: Coded Allergies: Penicillins (Verified Allergy, Unknown, 07/17/15) Uncoded Allergies: TAPE (Allergy, Severe, 06/14/18) rashes PMhx/Soc History of Surgery: Yes (hydrocephalus, shunt placement, multiple back and abdominal surgeries) Anesthesia Reaction: No Hx Neurological Disorder: No Hx Respiratory Disorders: No Hx Cardiac Disorders: No Hx Psychiatric Problems: No Hx Miscellaneous Medical Probl: No Hx Alcohol Use: No Hx Substance Use: No Hx Tobacco Use: No FmHx Family History: No coronary disease Physical Exam Vitals Vital Signs Date Temp Pulse Resp B/P (MAP) Pulse Ox O2 O2 Flow FiO2 Time Delivery Rate 10/01/18 98.9 72 22 165/91 100 Nasal 2.0 02:50 (115) Cannula 09/30/18 99.6 90 20 147/101 100 23:39 (116) Physical Exam Const: Moderate acute distress noted Resp: Clear to auscultation bilaterally Cardio: Regular rate and rhythm, no murmurs Abd: Soft, non distended. Normal bowel sounds, severe tenderness palpation in the epigastric area, due to pain the patient would not allow deep palpation. Skin: No petechiae or rashes Back: No midline or flank tenderness Ext: No cyanosis, or edema Neur: Awake and alert Psych: Normal Mood and Affect Result Diagram: 10/01/183310/01/1833 Results 24 hrs Laboratory Tests Test 10/01/18 00:34 10/01/18 04:02 White Blood Count 13.5 10^3/ul Red Blood Count 5.22 10^6/ul Hemoglobin 14.7 g/dl Hematocrit 43.5 % Mean Corpuscular Volume 83.3 fl Mean Corpuscular Hemoglobin 28.2 pg Mean Corpuscular Hemoglobin Concent 33.8 g/dl Red Cell Distribution Width 13.2 % Platelet Count 324 10^3/UL Mean Platelet Volume 11.1 fl Immature Granulocytes % 0.100 % Neutrophils % 66.1 % Lymphocytes % 25.7 % Monocytes % 6.9 % Eosinophils % 0.5 % Basophils % 0.7 % Nucleated Red Blood Cells % 0.0 /100WBC Immature Granulocytes # 0.020 10^3/ul Neutrophils # 8.9 10^3/ul Lymphocytes # 3.5 10^3/ul Monocytes # 0.9 10^3/ul Eosinophils # 0.1 10^3/ul Basophils # 0.1 10^3/ul Nucleated Red Blood Cells # 0.0 10^3/ul Sodium Level 143 mmol/L Potassium Level 3.2 mmol/L Chloride Level 105 mmol/L Carbon Dioxide Level 22 mmol/L Anion Gap 16 Blood Urea Nitrogen 9 mg/dl Creatinine 0.84 mg/dl Est Glomerular Filtrat Rate mL/min > 60 mL/min Glucose Level 126 mg/dl Calcium Level 10.3 mg/dl Total Bilirubin 0.3 mg/dl Direct Bilirubin 0.00 mg/dl Indirect Bilirubin 0.3 mg/dl Aspartate Amino Transf (AST/SGOT) 25 IU/L Alanine Aminotransferase (ALT/SGPT) 22 IU/L Alkaline Phosphatase 90 IU/L Total Protein 8.7 g/dl Albumin 5.0 g/dl Globulin 3.70 g/dl Albumin/Globulin Ratio 1.35 Lipase 103 U/L POC Beta HCG, Qualitative NEGATIVE Current Medications Medications Dose Sig/Tammy Start Time Status Last (Trade) Ordered Route PRN Stop Time Admin Dose Reason Admin Sodium 1,000 ml @ Q1H STAT 10/01/18 DC 10/01/18 Chloride 1,000 mls/hr IV 00:18 10/01/18 01:18 01:17 Morphine 4 mg ONCE STAT 10/01/18 DC 10/01/18 Sulfate IV 00:18 10/01/18 01:15 (morphine) 00:21 Ondansetron 4 mg ONCE STAT 10/01/18 DC 10/01/18 HCl (Zofran IV 00:18 10/01/18 01:15 Inj) 00:21 0.5 mg ONCE STAT 10/01/18 DC 10/01/18 Hydromorphone IV 01:36 10/01/18 01:42 HCl 01:37 (Dilaudid) Sodium 1,000 ml @ Q1H ONCE 10/01/18 DC 10/01/18 Chloride 1,000 mls/hr IV 02:00 10/01/18 01:43 02:59 100 ml @ ONCE ONCE 10/01/18 DC 10/01/18 Levofloxacin/ 100 mls/hr IVPB 02:30 10/01/18 04:02 Dextrose 03:29 100 ml @ ONCE ONCE 10/01/18 DC 10/01/18 Metronidazole 100 mls/hr IVPB 02:30 10/01/18 03:09 03:29 0.5 mg ONCE STAT 10/01/18 DC 10/01/18 Hydromorphone IV 02:43 10/01/18 02:47 HCl 02:44 (Dilaudid) IV Flush 10 ml STK-MED 10/01/18 DC (NS 10 ml) ONCE .ROUTE 03:41 10/01/18 03:42 Sodium 100 ml @ ud STK-MED 10/01/18 DC Chloride ONCE .ROUTE 03:41 10/01/18 03:42 Iohexol 150 ml STK-MED 10/01/18 DC (Omnipaque ONCE .ROUTE 03:41 10/01/18 300mg/ ml) 03:42 Procedures/MDM Medical Decision Making: Differential diagnosis includes but not limited to acute gastritis, acute gastroenteritis, appendicitis, cholecystitis, pancreatitis, nephrolithiasis Patient in moderate distress on examination ED course: Patient was given morphine, zofran and dilaudid 0.5mg x2, IV fluids, blood c ultures drawn and levaquin and flagyl IV started Labs: CBC showed no severe anemia, elevated WBC 13.5 CMP showed low K 3.2, there was normal kidney and liver function Lipase was normal Urine results pending UA results pending Patient has not given a urine sample Imaging: Gallbladder ultrasound shows multiple gallstones with evidence of cholecystitis CT abdomen and pelvis with IV contrast ordered and pending Given that patient has been given multiple doses a IV pain medication with resolution of the pain, Dr. Polo Roldan was contacted for patient admission for pain control and medical management. Patient's care signed over to [facility]. Pending follow up with Dr. Roldan and CT abdomen as well as pending UA. Disclaimer: Inadvertent spelling and grammatical errors are likely due to EHR/dictation software use and do not reflect on the overall quality of patient care. Also, please note that the electronic time recorded on this note does not necessarily reflect the actual time of the patient encounter. ALESHIA OROURKE DO October 01, 2018 03:41
[2018-10-01] MEDS ORDERED: HYDROmorphONE 1 MG/ML SYG IV STA (07:19)
[2018-10-01] MEDS ORDERED: ONDANSETRON 4 MG INJ IV PRN ×4 (07:30→22:00)
[2018-10-01] MEDS ORDERED: morphine 2 MG INJ IV PRN (12:12)
[2018-10-01] MEDS ORDERED: SOD CHLORIDE 0.9% 1,000 ML IV SCH (13:17)
--- NOTE | 2018-10-01 13:22 | QN ---
Documentation Comment seen and examined ENEDINA CUTLER MD October 01, 2018 13:22
[2018-10-01] MEDS ORDERED: DOCUSATE SODIUM 100 MG CAP PO PRN (13:30)
[2018-10-01] MEDS ORDERED: METOCLOPRAMIDE 10 MG INJ IV PRN ×2 (13:30→22:00)
[2018-10-01] MEDS: metroNIDAZOLE 500 MG/NS (PMX) 100 ML IVPB SCH ×2 (18:17→23:50)
[2018-10-01] MEDS: CIPROFLOXACIN 400MG/D5W 200 ML IVPB SCH (19:51)
--- NOTE | 2018-10-01 19:55 | PREAC ---
Date/Time of Note Date/Time of Note DATE: 10/01/18 TIME: 19:51 Anesthesia Eval and Record Evaluation Time Pre-Procedure Interview DATE: 10/01/18 TIME: 19:51 Age 28 Sex female NPO: 8 hrs Preoperative diagnosis Cholelithiasis Planned procedure Lap vs open Cholecystectomy Past Medical History Past Medical History: Includes Neuro: Other (shunts) GI: Morbid obesity (multiple abdominal surgeries) Surgery & Anesthesia Issues No known issue Meds Anticoagulation: No Beta Carrie within 24 hr: No Reason Beta Carrie not given: Pt. not on B-Carrie Active Scripts Metronidazole* (Flagyl*) 500 Mg Tablet, 500 MG PO Q8 for 7 Days, TAB Prov:ENEDINA CUTLER MD 05/31/18 Ciprofloxacin Hcl* (Ciprofloxacin Hcl*) 500 Mg Tablet, 500 MG PO BID for 7 Days, #14 TAB Prov:ENEDINA CUTLER MD 05/31/18 Current Medications Ondansetron HCl (Zofran Inj) 4 mg BRIDGE ORDER PRN IV NAUSEA/VOMITING; Start 10/01/18 at 07:30; Stop 10/02/18 at 07:29 Morphine Sulfate (morphine) 2 mg Q3H PRN IV PAIN LEVEL 6-10 Last administered on 10/01/18at 12:18; Admin Dose 2 MG; Start 10/01/18 at 12:12 Sodium Chloride 1,000 ml @ 70 mls/hr [id number] IV Last administered on 10/01/18at 13:17; Admin Dose 70 MLS/HR; Start 10/01/18 at 13:17 Ondansetron HCl (Zofran Inj) 4 mg Q6H PRN IV NAUSEA/VOMITING; Start 10/01/18 at 13:30 Metoclopramide HCl (Reglan) 10 mg Q6H PRN IV NAUSEA/VOMITING; Start 10/01/18 at 13:30 Docusate Sodium (Colace) 100 mg Q12H PRN PO .CONSTIPATION; Start 10/01/18 at 13:30 Pantoprazole (Protonix Iv) 40 mg DAILY@06 IV ; Start 10/02/18 at 06:00 Ciprofloxacin/ Dextrose 200 ml @ 200 mls/hr Q12 IVPB ; Start 10/01/18 at 16:00 Metronidazole 100 ml @ 100 mls/hr Q8 IVPB Last administered on 10/01/18at 18:17; Admin Dose 100 MLS/HR; Start 10/01/18 at 14:00 Meds reviewed: Yes Allergies Coded Allergies: Penicillins (Verified Allergy, Unknown, 07/17/15) Uncoded Allergies: TAPE (Allergy, Severe, 06/14/18) rashes Allergies Reviewed: Yes Labs/Studies Labs Reviewed: Reviewed by anesthesiologist Result Diagram: 10/01/18 0034 10/01/18 0034 Laboratory Tests 10/01/18 00:34 test: Negative Studies: ECG Pre-procedure Exam Last vitals Vital Signs Date Temp Pulse Resp B/P (MAP) Pulse Ox O2 O2 Flow FiO2 Time Delivery Rate 10/01/18 98.4 59 18 118/81 100 Nasal 2.0 14:45 (93) Cannula Airway: Adequate mouth opening, Adequate thyromental dist Mallampati: Mallampati II Teeth: Normal Lung: Normal Heart: Normal ASA Physical Status ASA physical status: 3 Emergency: E Planned Anesthetic General/MAC: ETT Planned Pain Management Parenteral pain med, Local by surgeon Pre-operative Attestations Prior to commencing anesthesia and surgery, the patient was re-evaluated, there was verification of: *The patient's identity *The results of appropriate recent lab work and preoperative vital signs *The above evaluation not changing prior to induction *Anesthetic plan, risk benefits, alternative and complications discussed with patient/family; questions answered; patient/family understands, accepts and wishes to proceed. YU GRIJALVA MD October 01, 2018 19:55
[2018-10-01] MEDS ORDERED: SEVOFLURANE 15 MIN ONE (20:00)
--- NOTE | 2018-10-01 20:00 | CONS ---
Assessment/Plan Assessment/Plan Hospital Course (Demo Recall) HIDA scan was performed that showed no visualization of the gallbladder, with evidence of acute cholecystitis. Liver function tests were normal Problems: (1) Cholecystitis (2) Gallstone Status: Chronic Qualifiers: Qualified Codes: K80.12 - Calculus of gallbladder with acute and chronic cholecystitis without obstruction Assessment/Plan (Daily) Acute cholecystitis. Given the severe pain I made the decision to take the patient to the operating room. I discussed with the patient risk and benefits. I made it clear to the patient that due to the previous attempts of laparoscopic surgery if there is a good possibility of converting surgery to open procedure. We discussed risks and benefits were discussed possible side effects, possible complications including but not limited to bleeding, infection, injury to other organs and bile duct, anesthesia complication, patient understood risk and andre efits and wished to proceed. Consultation Date/Type/Reason Admit Date/Time October 01, 2018 at 06:29 Date of Consultation: October 01, 2018 Type of Consult Surgical Reason for Consultation Symptomatic cholelithiasis, abdominal pain, possible cholecystitis. Date/Time of Note DATE: 10/01/18 TIME: 19:53 Hx of Present Illness 28-year-old female presents for abdominal pain x3-1/2 hours. She has a past medical history of hydrocephalus with a BIN PACKER shunt, multiple back and abdominal surgeries, history of gallstones. She states that she has 10 out of 10 pain, located in the epigastric area. She has nausea and vomiting. She denies fevers or diarrhea. She was here for a similar abdominal pain in May 2018, at that time was found to have multiple gallstones on imaging. Patient was taken to the OR at the time however it was noted that she had a lot of abdominal adhesions, therefore was felt that it was unsafe for surgery. Patient was given antibiotics and pain control. She was told to follow-up at [facility] given that she gets most of her medical care for her hydrocephalus and BIN PACKER shunt at [facility]. Per patient she did follow-up at [facility] subsequent to discharge from the hospital here on May 2018, she was admitted for about a week and was given antibiotics and pain medication. Again surgery was not attempted due to adhesions. Patient states that since then she has been okay, she always has a baseline mild abdominal pain intermittently, however states that the past few hours the pain has been more severe. Pain is mostly in the epigastrium goes to her back. Constitutional: no complaints, improved Eyes: no complaints ENT: no complaints Respiratory: no complaints Cardiovascular: no complaints Gastrointestinal: pain, decreased appetite, nausea Genitourinary: no complaints Musculoskeletal: no complaints Skin: no complaints Neurologic: headache, other (Hydrocephalus in the history) Endocrine: no complaints Lymphatic: no complaints Psychological: no complaints, nl mood/affect Immunologic: no complaints Past Medical History Medical History: gallstones, other (History of the hydrocephalus, history of the multiple BIN PACKER shunts, history of back surgery.) Home Meds Active Scripts Metronidazole* (Flagyl*) 500 Mg Tablet, 500 MG PO Q8 for 7 Days, TAB Prov:ENEDINA CUTLER MD 05/31/18 Ciprofloxacin Hcl* (Ciprofloxacin Hcl*) 500 Mg Tablet, 500 MG PO BID for 7 Days, #14 TAB Prov:ENEDINA CUTLER MD 05/31/18 Medications Current Medications Ondansetron HCl (Zofran Inj) 4 mg BRIDGE ORDER PRN IV NAUSEA/VOMITING; Start 10/01/18 at 07:30; Stop 10/02/18 at 07:29 Morphine Sulfate (morphine) 2 mg Q3H PRN IV PAIN LEVEL 6-10 Last administered on 10/01/18at 12:18; Admin Dose 2 MG; Start 10/01/18 at 12:12 Sodium Chloride 1,000 ml @ 70 mls/hr [id number] IV Last administered on 10/01/18at 13:17; Admin Dose 70 MLS/HR; Start 10/01/18 at 13:17 Ondansetron HCl (Zofran Inj) 4 mg Q6H PRN IV NAUSEA/VOMITING; Start 10/01/18 at 13:30 Metoclopramide HCl (Reglan) 10 mg Q6H PRN IV NAUSEA/VOMITING; Start 10/01/18 at 13:30 Docusate Sodium (Colace) 100 mg Q12H PRN PO .CONSTIPATION; Start 10/01/18 at 13:30 Pantoprazole (Protonix Iv) 40 mg DAILY@06 IV ; Start 10/02/18 at 06:00 Ciprofloxacin/ Dextrose 200 ml @ 200 mls/hr Q12 IVPB ; Start 10/01/18 at 16:00 Metronidazole 100 ml @ 100 mls/hr Q8 IVPB Last administered on 10/01/18at 18:17; Admin Dose 100 MLS/HR; Start 10/01/18 at 14:00 Allergies: Coded Allergies: Penicillins (Verified Allergy, Unknown, 07/17/15) Uncoded Allergies: TAPE (Allergy, Severe, 06/14/18) rashes Past Surgical History Patient is a history of multiple BIN PACKER shunt placed due to hydrocephalus as well as back and spine surgery Past Surgical Hx: other Family History Significant Family History: no pertinent family hx Social History Alcohol Use: none Smoking Status: Never smoker Drug Use: none Exam/Review of Systems Exam Vitals Vital Signs Date Temp Pulse Resp B/P (MAP) Pulse Ox O2 O2 Flow FiO2 Time Delivery Rate 10/01/18 98.4 59 18 118/81 100 Nasal 2.0 14:45 (93) Cannula Constitutional: alert, oriented, well developed, distress Psych: no complaints, nl mood/affect Head: normocephalic, atraumatic Eyes: nl conjunctiva, EOMI, nl lids, nl sclera, PERRL ENMT: nl external ears & nose, nl lips & teeth, nl nasal mucosa & septum Neck: supple, non-tender Respiratory: clear to auscultation, normal air movement Cardiovascular: regular rate and rhythm, nl pulses Gastrointestinal: other (Abdomen is obese soft in the left side and very tender in the right subcostal area with positive Grady sign. Multiple well-healed scars from the previous surgery. No evidence of herniation.) Musculoskeletal: nl extremities to inspection, nl gait and stance Extremities: normal pulses Neurological: SWITCH ENGINEER II-XII intact, nl mental status, nl speech, nl strength Skin: nl turgor; No rash or lesions Lymph: nl lymph nodes Results Result Diagram: 10/01/18 0034 10/01/18 0034 Results 24hrs Laboratory Tests Test 10/01/18 00:34 10/01/18 04:02 10/01/18 05:00 White Blood Count 13.5 #H Red Blood Count 5.22 Hemoglobin 14.7 Hematocrit 43.5 Mean Corpuscular Volume 83.3 Mean Corpuscular Hemoglobin 28.2 L Mean Corpuscular 33.8 Hemoglobin Concent Red Cell Distribution Width 13.2 Platelet Count 324 Mean Platelet Volume 11.1 H Immature Granulocytes % 0.100 Neutrophils % 66.1 Lymphocytes % 25.7 Monocytes % 6.9 Eosinophils % 0.5 Basophils % 0.7 Nucleated Red Blood Cells % 0.0 Immature Granulocytes # 0.020 Neutrophils # 8.9 H Lymphocytes # 3.5 H Monocytes # 0.9 Eosinophils # 0.1 Basophils # 0.1 Nucleated Red Blood Cells # 0.0 Sodium Level 143 Potassium Level 3.2 L Chloride Level 105 Carbon Dioxide Level 22 Anion Gap 16 H Blood Urea Nitrogen 9 Creatinine 0.84 Est Glomerular Filtrat > 60 Rate mL/min Glucose Level 126 Calcium Level 10.3 H Total Bilirubin 0.3 Direct Bilirubin 0.00 Indirect Bilirubin 0.3 Aspartate Amino 25 Transf (AST/SGOT) Alanine 22 Aminotransferase (ALT/SGPT) Alkaline Phosphatase 90 Total Protein 8.7 H Albumin 5.0 H Globulin 3.70 H Albumin/Globulin Ratio 1.35 Lipase 103 POC Beta HCG, Qualitative NEGATIVE Urine Color YELLOW Urine Clarity SLIGHTLY CLOUDY A Urine pH 7.0 Urine Specific [place] 1.017 Urine Ketones 1+ H Urine Nitrite NEGATIVE Urine Bilirubin NEGATIVE Urine Urobilinogen NEGATIVE Urine Leukocyte Esterase 1+ H Urine Microscopic RBC 3 Urine Microscopic WBC 3 Urine Squamous Epithelial Cells MODERATE Urine Mucus FEW A Urine Hemoglobin 1+ H Urine Glucose NEGATIVE Urine Total Protein NEGATIVE Medications Medication Current Medications Ondansetron HCl (Zofran Inj) 4 mg BRIDGE ORDER PRN IV NAUSEA/VOMITING; Start 10/01/18 at 07:30; Stop 10/02/18 at 07:29 Morphine Sulfate (morphine) 2 mg Q3H PRN IV PAIN LEVEL 6-10 Last administered on 10/01/18at 12:18; Admin Dose 2 MG; Start 10/01/18 at 12:12 Sodium Chloride 1,000 ml @ 70 mls/hr [id number] IV Last administered on 10/01/18at 13:17; Admin Dose 70 MLS/HR; Start 10/01/18 at 13:17 Ondansetron HCl (Zofran Inj) 4 mg Q6H PRN IV NAUSEA/VOMITING; Start 10/01/18 at 13:30 Metoclopramide HCl (Reglan) 10 mg Q6H PRN IV NAUSEA/VOMITING; Start 10/01/18 at 13:30 Docusate Sodium (Colace) 100 mg Q12H PRN PO .CONSTIPATION; Start 10/01/18 at 13:30 Pantoprazole (Protonix Iv) 40 mg DAILY@06 IV ; Start 10/02/18 at 06:00 Ciprofloxacin/ Dextrose 200 ml @ 200 mls/hr Q12 IVPB ; Start 10/01/18 at 16:00 Metronidazole 100 ml @ 100 mls/hr Q8 IVPB Last administered on 10/01/18at 18:17; Admin Dose 100 MLS/HR; Start 10/01/18 at 14:00 VERONIQUE ROMERO MD October 01, 2018 20:00
[2018-10-01] MEDS ORDERED: MIDAZOLAM 1 MG/ML 2 ML INJ ONE (20:01)
[2018-10-01] MEDS ORDERED: BUPIVACAINE 0.5%/EPI (SDV) 30 ML INJ ONE (20:28)
[2018-10-01] MEDS ORDERED: LIDOCAINE 1% (MPF) 30 ML INJ ONE (20:28)
[2018-10-01] MEDS ORDERED: ROPIVACAINE 0.5 % 30 ML VIAL ONE (21:27)
[2018-10-01] MEDS ORDERED: DIPHENHYDRAMINE 25 MG CAP PO PRN (21:30)
[2018-10-01] MEDS ORDERED: HYDROCODONE/APAP (5/325) TAB PO PRN (21:30)
[2018-10-01] MEDS ORDERED: ACETAMINOPHEN 325 MG TAB PO PRN (21:30)
[2018-10-01] MEDS ORDERED: DIPHENHYDRAMINE 50 MG INJ IV PRN ×2 (21:30→22:00)
--- NOTE | 2018-10-01 21:36 | OPR ---
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 Presented today with severe pain, HIDA scan showed obstruction of the cystic duct. Ultrasound reveals no biliary dilatation and the patient had normal liver function tests. We discussed risks and benefits were discussed possible side effects, possible complications including but not limited to bleeding, infection, injury to other organs, bile ducts, anesthesia complication, patient understood risk and benefits and wished to proceed. Procedure Description The risks, benefits and alternatives of the procedure were discussed with the patient and informed consent was obtained. We discussed with the patient and the family possibility of the bleeding, infection, injury to other organs, bile ducts injury, retained stones and necessity of the ERCP. OPERATIVE PROCEDURE: The patient was brought to the operating room and placed supine. IV antibiotics were given. Venodynes were placed to both lower extremities. General endotracheal anesthesia was achieved. The abdomen was prepped and draped in a sterile fashion. 0.25% Marcaine with epinephrine was used for local anesthesia. a Veress needle was placed in the left subcostal position. The abdomen was insufflated with CO2. Intraperitoneal position was confirmed using the saline drop test. Carbon dioxide pneumoperitoneum was achieved with a good filling pressure to 15 mmHg. The 30- degree 5 mm video laparoscope was inserted through a 5-mm trocar placed in the left subcostal position. There was no evidence of injury after Veress needle and trocar insertion. Additional 5 trocars was placed in the left abdomen. Dense adhesions were encountered and there was no visualization of the gallbladder. Sharp and blunt dissection I was able to dissect the omentum off the anterior abdominal wall. After lengthy dissection I was able to create enough space to visualize the gallbladder. The bladder was found to be distended gangrenous. 2 additional 5 mm trochars were placed in the right abdomen. a 12-mm subxiphoid trocar, The gallbladder was grasped at the fundus and elevated cephalad. The area at Calot's triangle was dissected using blunt and electrocautery dissection, and critical view was obtained. Clip placed across the cystic duct and artery. The cystic duct was clipped additionally and then divided. The cystic artery was clipped x2 additionally. The gallbladder was dissected off the liver using electrocautery dissection and removed using an EndoCatch bag. The trocars were removed under direct visualization and no bleeding seen at the trocar sites. The abdomen was again inspected and no evidence of injury from the lysis of adhesion was noticed. the pneumoperitoneum was reduced and the subxiphoid and umbilical trocar sites closed with 0 Vicryl to reapproximate the fascia. The trocar sites were reapproximated with 4-0 Monocryl sutures. Steri- Strips and sterile dressings were applied. The sponge and instrument counts wer e reported as correct x2. Estimated blood loss was 5 cc. The patient was woken from anesthesia, extubated, and transferred to the recovery room in stable condition. By the end of the procedure, the instrument and sponge counts were correct x2. STATEMENT OF PRESENCE: Dr. Robertson was present for the entire case. VERONIQUE ROBERTSON MD October 01, 2018 21:36
[2018-10-01] MEDS ORDERED: PROPOFOL 20 ML ONE (21:41)
[2018-10-01] MEDS ORDERED: GLYCOPYRROLATE 0.4 MG INJ ONE (21:41)
[2018-10-01] MEDS ORDERED: LIDOCAINE 2% (SDV) 5 ML INJ ONE (21:41)
[2018-10-01] MEDS ORDERED: ONDANSETRON 4 MG INJ ONE (21:41)
[2018-10-01] MEDS ORDERED: METOCLOPRAMIDE 10 MG INJ ONE (21:41)
[2018-10-01] MEDS ORDERED: NEOSTIGMINE 3 MG/3 ML SYRINGE ONE (21:41)
--- NOTE | 2018-10-01 21:53 | PAC ---
Date/Time of Note Date/Time of Note DATE: 10/01/18 TIME: 21:52 Post-Anesthesia Notes Post-Anesthesia Note Last documented vital signs Vital Signs Date Temp Pulse Resp B/P (MAP) Pulse Ox O2 O2 Flow FiO2 Time Delivery Rate 10/01/18 98.4 59 18 118/81 100 Nasal 2.0 14:45 (93) Cannula Activity: WNL Respiratory function: WNL Cardiovascular function: WNL Mental status: Baseline Pain reasonably controlled: Yes Hydration appropriate: Yes Nausea/Vomiting absent: Yes Comments BP:134/67, P:78, Spo2:100%, T:98,8 YU GRIJALVA MD October 01, 2018 21:53
[2018-10-01] MEDS ORDERED: MEPERIDINE 25 MG INJ IV PRN (22:00)
[2018-10-01] MEDS ORDERED: HYDROmorphONE 1 MG/5 ML IV SYRINGE IV PRN ×2 (22:00)
[2018-10-01] MEDS ORDERED: FENTAnyl 50 MCG/ML VIAL IV PRN (22:00)
[2018-10-01] MEDS: D5W-0.45 NACL + KCL 20 MEQ 1,000 ML IV SCH (23:50)
[2018-10-02] MEDS: morphine 2 MG INJ IV PRN ×8 (00:02→23:03)
[2018-10-02] MEDS: KETOROLAC 30 MG INJ IV PRN ×2 (01:41→09:31)
[2018-10-02 02:00] VITALS: BP 121/77; PULSE 83; RESP 19
[2018-10-02] MEDS: CIPROFLOXACIN 400MG/D5W 200 ML IVPB SCH ×3 (02:19→21:01)
[2018-10-02] MEDS: metroNIDAZOLE 500 MG/NS (PMX) 100 ML IVPB SCH ×3 (05:56→23:01)
[2018-10-02] MEDS: PANTOPRAZOLE 40 MG INJ IV SCH (05:56)
[2018-10-02] MEDS: D5W-0.45 NACL + KCL 20 MEQ 1,000 ML IV SCH ×2 (07:30→16:37)
[2018-10-02 07:40] VITALS: BP 129/77; PULSE 87; RESP 16
--- NOTE | 2018-10-02 07:54 | HP ---
DATE OF ADMISSION: 10/01/2018 REASON FOR ADMISSION: Abdominal pain. The patient was seen on 10/01/2018. HISTORY OF PRESENT ILLNESS: This is a 28-year-old female with a past medical history of hydrocephalu s as a child, multiple back surgeries, abdominal surgeries, multiple INTERFACE ANALYST shunt placement, who was init ially admitted in May 2018 secondary to cholecystitis. The patient had been followed all her car e at [facility]. At that time, patient presented with severe abdominal pain. The patient was taken to OR by Dr. Virk and had lesions throughout the entire peritoneum with limited laparoscopy, so it was ad vised the patient does not go for surgery. The patient was told to follow up with [facility] as an outpati ent as her abdominal pain had improved and patient was continued on fluids and antibiotics. The minerva ent followed with [facility] and it was considered unsafe to go for cholecystectomy; however, patient said that she had for the last 2 days, she started having right upper quadrant pain. She was also having some alcohol at home. The patient was having also some episodes of nausea and vomiting that made her come to the emergency department. On arrival to the ED, her temperature was 99.6, blood pressure wa s 165/91. White count 13.5, hemoglobin 14.7, platelet count 324, potassium 3.2, BUN of 9, creatinine 0.84, calcium 10.3. LFTs were negative and patient also had an abdominal gallbladder ultrasound enedelia t shows multiple gallstones without gallbladder wall thickening or pericholecystic fluid. A CT of th e abdomen and pelvis showed a distended gallbladder with multiple gallstones and the patient was admi tted for further management. The patient had required multiple doses of morphine and Dilaudid in the ER. PAST MEDICAL HISTORY: History of hydrocephalus with multiple shunt placement and back surgeries. ALLERGIES: 1. PENICILLIN. 2. TAPE. SOCIAL HISTORY: Occasionally drinks alcohol. Denied any smoking or any drug use. FAMILY HISTORY: Noncontributory. HOME MEDICATIONS: Vicodin. PHYSICAL EXAMINATION: VITAL SIGNS: Currently, blood pressure 122/75, afebrile, heart rate is 82, respirations 19, saturati ng 95%. GENERAL: The patient is awake, alert, oriented, appears to be in moderate distress secondary to pain . The patient is obese. HEENT: Pupils equal, round, reactive to light. NECK: Supple. No JVD. HEART: Regular rate and rhythm. ABDOMEN: The patient is obese. Left side very tender than the right subcostal area. Positive Vivek y's sign. Multiple well-healed surgical scars from previous surgery. No signs of herniation. No pe ritoneal signs. EXTREMITIES: No clubbing, cyanosis, or edema. LABORATORY DATA: White count 13.5, hemoglobin 14.7, platelet count 324. Potassium 3.2, BUN 9, creat inine 0.84. ASSESSMENT: This is a 28-year-old female with: 1. Symptomatic gallstones with evidence of acute cholecystitis on exam; however, LFTs are normal. 2. Severe right upper quadrant pain secondary to #1. 3. History of hydrocephalus with INTERFACE ANALYST shunt placement. 4. History of multiple abdominal scars. PLAN: At this period of time, the patient is admitted to med/surg. The patient will be n.p.o., IV f luids, IV antibiotics. A surgery consultation with Dr. Spence has been requested and spoke to Dr. Spence in detail about the previous medical history. HIDA has been ordered. GI consultation has been ordered. Rest of the treatment will depend on the patient's hospitalization course. Dictated By: ENEDINA NEFF/JUNIOR Conf#: [id number] DID#: [id number] CC: COBY BOOTH MD;*EndCC*
[2018-10-02 14:15] VITALS: BP 124/79; PULSE 87; RESP 16
--- NOTE | 2018-10-02 17:10 | PN ---
Date/Time of Note Date/Time of Note DATE: 10/02/18 TIME: 17:06 Assessment/Plan VTE Prophylaxis Risk score (from Ns)>0 risk: 3 SCD applied (from Ns): Yes Pharmacological prophylaxis: NA/contraindicated Pharm contraindication: low risk/ambulating Lines/Catheters IV [facility]from [facility] Peripheral IV Urinary Cath still in place: No Assessment/Plan Hospital Course 28-year-old female with: 1. Acute gangrenous cholecystitis sp Laparoscopic cholecystectomy, laparoscopic lysis of adhesions 2. Severe right upper quadrant pain secondary to #1. 3. 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 4. History of multiple abdominal scars. plan - carb controlled diet - change to po pain med - ambulate - dc planning if ok with surgery Result Diagram: 10/02/18 1459 10/02/18 1459 Results 24hrs Laboratory Tests Test 10/02/18 14:59 White Blood Count 10.0 # Red Blood Count 4.32 Hemoglobin 12.0 Hematocrit 36.6 L Mean Corpuscular Volume 84.7 Mean Corpuscular Hemoglobin 27.8 L Mean Corpuscular Hemoglobin Concent 32.8 Red Cell Distribution Width 13.4 Platelet Count 268 Mean Platelet Volume 11.1 H Immature Granulocytes % 0.300 Neutrophils % 68.1 Lymphocytes % 20.8 Monocytes % 8.9 Eosinophils % 1.6 Basophils % 0.3 Nucleated Red Blood Cells % 0.0 Immature Granulocytes # 0.030 Neutrophils # 6.8 Lymphocytes # 2.1 Monocytes # 0.9 Eosinophils # 0.2 Basophils # 0.0 Nucleated Red Blood Cells # 0.0 Sodium Level 137 Potassium Level 3.9 Chloride Level 109 Carbon Dioxide Level 21 Anion Gap 7 # Blood Urea Nitrogen 7 Creatinine 0.81 Est Glomerular Filtrat Rate mL/min > 60 Glucose Level 101 Calcium Level 7.8 L Phosphorus Level 2.9 Magnesium Level 2.0 Total Bilirubin 0.4 Direct Bilirubin 0.00 Indirect Bilirubin 0.4 Aspartate Amino Transf (AST/SGOT) 81 H Alanine Aminotransferase (ALT/SGPT) 86 H Alkaline Phosphatase 56 Total Protein 6.4 # Albumin 3.4 # Globulin 3.00 Albumin/Globulin Ratio 1.13 Subjective 24 Hr Interval Summary Free Text/Dictation Laparoscopic cholecystectomy, laparoscopic lysis of adhesions Pod # 1 pain improved no bm yet Surgeon Exam/Review of Systems Exam Vitals Vital Signs Date Temp Pulse Resp B/P (MAP) Pulse Ox O2 O2 Flow FiO2 Time Delivery Rate 10/02/18 98.6 87 16 124/79 100 Room Air 14:15 (94) 10/01/18 8.0 22:09 Intake and Output 10/01/18 10/01/18 10/02/18 1515:00 23:00 07:00 IntakeIntake Total 1200 ml 300 ml OutputOutput Total 25 ml 1100 ml BalanceBalance 1175 ml -800 ml Exam ENERAL: The patient is awake, alert, oriented, appears to be in moderate distress secondary to pain. The patient is obese. HEENT: Pupils equal, round, reactive to light. NECK: Supple. No JVD. HEART: Regular rate and rhythm. ABDOMEN: TTP surgical site EXTREMITIES: No clubbing, cyanosis, or edema. Results Results 24hrs Laboratory Tests Test 10/02/18 14:59 White Blood Count 10.0 # Red Blood Count 4.32 Hemoglobin 12.0 Hematocrit 36.6 L Mean Corpuscular Volume 84.7 Mean Corpuscular Hemoglobin 27.8 L Mean Corpuscular Hemoglobin Concent 32.8 Red Cell Distribution Width 13.4 Platelet Count 268 Mean Platelet Volume 11.1 H Immature Granulocytes % 0.300 Neutrophils % 68.1 Lymphocytes % 20.8 Monocytes % 8.9 Eosinophils % 1.6 Basophils % 0.3 Nucleated Red Blood Cells % 0.0 Immature Granulocytes # 0.030 Neutrophils # 6.8 Lymphocytes # 2.1 Monocytes # 0.9 Eosinophils # 0.2 Basophils # 0.0 Nucleated Red Blood Cells # 0.0 Sodium Level 137 Potassium Level 3.9 Chloride Level 109 Carbon Dioxide Level 21 Anion Gap 7 # Blood Urea Nitrogen 7 Creatinine 0.81 Est Glomerular Filtrat Rate mL/min > 60 Glucose Level 101 Calcium Level 7.8 L Phosphorus Level 2.9 Magnesium Level 2.0 Total Bilirubin 0.4 Direct Bilirubin 0.00 Indirect Bilirubin 0.4 Aspartate Amino Transf (AST/SGOT) 81 H Alanine Aminotransferase (ALT/SGPT) 86 H Alkaline Phosphatase 56 Total Protein 6.4 # Albumin 3.4 # Globulin 3.00 Albumin/Globulin Ratio 1.13 Medications Medication Current Medications Docusate Sodium (Colace) 100 mg Q12H PRN PO .CONSTIPATION; Start 10/01/18 at 13:30 Pantoprazole (Protonix Iv) 40 mg DAILY@06 IV Last administered on 10/02/18 05:56; Admin Dose 40 MG; Start 10/02/18 at 06:00 Ciprofloxacin/ Dextrose 200 ml @ 200 mls/hr Q12 IVPB Last administered on 10/02/18 08:50; Admin Dose 200 MLS/HR; Start 10/01/18 at 16:00 Metronidazole 100 ml @ 100 mls/hr Q8 IVPB Last administered on 10/02/18 14:42; Admin Dose 100 MLS/HR; Start 10/01/18 at 14:00 Ondansetron HCl (Zofran Inj) 4 mg Q6H PRN IV NAUSEA AND/OR VOMITING Last administered on 10/02/18 09:39; Admin Dose 4 MG; Start 10/01/18 at 21:30 Ketorolac Tromethamine (Toradol) 30 mg Q6H PRN IV PAIN Last administered on 10/02/18 09:31; Admin Dose 30 MG; Start 10/01/18 at 21:30; Stop 10/04/18 at 21:29 Morphine Sulfate (morphine) 2 mg Q2H PRN IV BREAKTHROUGH PAIN Last administered on 10/02/18 16:31; Admin Dose 2 MG; Start 10/01/18 at 21:30 Acetaminophen (Tylenol Tab) 650 mg Q6H PRN PO MILD PAIN(1-3)OR ELEVATED TEMP; Start 10/01/18 at 21:30 Acetaminophen/ Hydrocodone Bitart ([place] (5/325)) 1 tab Q6H PRN PO PAIN LEVEL 6-10; Start 10/01/18 at 21:30 Diphenhydramine HCl (Benadryl) 25 mg Q6H PRN IV PRURITUS; Start 10/01/18 at 21:30 Diphenhydramine HCl (Benadryl) 25 mg Q6H PRN PO PRURITUS; Start 10/01/18 at 21:30 Potassium Chloride/Dextrose/ Sod Cl 1,000 ml @ 100 mls/hr Q10H IV Last administered on 10/02/18 16:37; Admin Dose 100 MLS/HR; Start 10/01/18 at 21:30 ENEDINA CUTLER MD October 02, 2018 17:10
[2018-10-02] MEDS: HYDROCODONE/APAP (5/325) TAB PO PRN (17:41)
[2018-10-02 20:10] VITALS: BP 113/59; PULSE 88; RESP 18
[2018-10-03 02:10] VITALS: BP 114/60; PULSE 70; RESP 20
[2018-10-03] MEDS: morphine 2 MG INJ IV PRN ×5 (02:31→13:32)
[2018-10-03] MEDS: PANTOPRAZOLE 40 MG INJ IV SCH (05:00)
[2018-10-03] MEDS: metroNIDAZOLE 500 MG/NS (PMX) 100 ML IVPB SCH ×2 (05:21→13:30)
[2018-10-03 08:00] VITALS: BP 119/68; PULSE 81; RESP 17
[2018-10-03] MEDS: CIPROFLOXACIN 400MG/D5W 200 ML IVPB SCH (08:30)
[2018-10-03 14:47] VITALS: BP 122/75; PULSE 71; RESP 17
[2018-10-03] MEDS: HYDROCODONE/APAP (5/325) TAB PO PRN (16:15)
--- NOTE | 2018-10-03 16:27 | PDOCDIS ---
Discharge Instructions DIAGNOSIS Discharge Diagnosis acute gangrenous cholecystitis sp lap jay CONDITION [id number] Patient Condition: [id number] Fair HOME CARE INSTRUCTIONS: [id number] Diet Instructions: [id number] Modified Fat ACTIVITY: [id number] Activity Restrictions: [id number] Slowly Increase Activity Rest between Activity Avoid heavy lifting FOLLOW UP/APPOINTMENTS Follow-up Plan fu Surgery in 1-2 weeks ENEDINA CUTLER MD October 03, 2018 16:27
[2018-10-03] MEDS ORDERED: CIPR500T4 PO (16:28)
[2018-10-03] MEDS ORDERED: METR500T PO (16:28)
[2018-10-03] MEDS ORDERED: HYDR-3601 PO (16:28)
[2018-10-03] MEDS ORDERED: DOCU-144 PO (16:28)
--- NOTE | 2018-10-04 03:21 | DS ---
DATE OF ADMISSION: 10/03/2018 DATE OF DISCHARGE: 10/03/2018 HISTORY OF PRESENTING ILLNESS AND HOSPITAL COURSE: A 28-year-old female with a past medical history of hydrocephalus as a child, multiple back surgeries, abdominal surgeries, multiple PARCEL POST ORDER CLERK shunt placemen t and initially administered in 05/2018 secondary to cholecystitis. The patient was followed care of [facility] The patient presented with severe abdominal pain. The patient was taken to OR by Dr. Virk and had lesions throughout the entire peritoneum and had a limited laparoscopy, so advised patient do es not go for surgery. The patient said that she was discharged home, went to [facility] They were unwil ling to do the surgery. She came to the emergency department this time complaining of severe epigast garth pain, nausea, vomiting. On admission, white count was 13.5, hemoglobin 14.7, platelet count 324. Grady sign was positive. The patient had gallbladder ultrasound done that showed multiple gallsto sandy without gallbladder thickening or pericholecystic fluid. CT of the abdomen and pelvis showed dis tended gallbladder, multiple gallstones. The patient had HIDA scan that was positive. The patient w as seen by ____ who take the patient for surgery. The patient had laparoscopic cholecystectomy, lapa roscopic lysis of adhesions, had acute gangrenous cholecystitis. The patient was requiring some pain medications; however, was able to tolerate the regular diet, considered stable to be discharged home per ____. FINAL DISCHARGE DIAGNOSES: 1. Acute gangrenous cholecystitis status post laparoscopic cholecystectomy, laparoscopic lysis of ad hesions. 2. Leukocytosis secondary to #1, resolved. 3. Abnormal LFTs, resolved. 4. History of hydrocephalus with PARCEL POST ORDER CLERK shunt placement. 5. History of multiple abdominal surgeries. DISCHARGE CONDITION: Stable. DISCHARGE DIET: Low fat. DISCHARGE MEDICATIONS: 1. Cipro 250 p.o. b.i.d. for 5 days. 2. Flagyl 500 p.o. t.i.d. for 5 days. 3. [place] p.r.n. pain. 4. Colace p.r.n. constipation. DISCHARGE INSTRUCTIONS: The patient was instructed to follow up with ____ in 1 to 2 weeks. Dictated By: ENEDINA NEFF/JUNIOR Conf#: [id number] DID#: [id number] CC: ELDA FARFAN MD; COBY BOOTH MD;*EndCC*
== END 2018-10-03 17:54 | disposition home or self-care (01) | DRG 419 ==
LOC: FTE 23:33 → MS3 10-01 06:29 → PP2 10-01 22:48 → OBSVTOIN 10-03 08:53
PROVIDERS: ADMIT Internal Medicine Nephrology; ATTEND Internal Medicine Nephrology
PROC: 0FT44ZZ Resection of Gallbladder, Percutaneous Endoscopic Approach (ICD-10-PCS; principal; 2018-10-01 19:30)
DX: K80.00 Calculus of gallbladder with acute cholecystitis without obstruction (principal); K82.A1 Gangrene of gallbladder in cholecystitis; Z98.2 Presence of cerebrospinal fluid drainage device
CPT/HCPCS: 36415; 74177; 76705; 78226; 80053; 81001; 81025; 83690; 83735; 84100; 85025; 88304; 93005; 96361; 96374; 96375; 96376; G0378; A9537; C9113; J0744; J1170; J1885; J1956; J2250; J2270; J2405; J2710; J2765; J2795; J3010; J3480; J7030; Q9967